=== PATIENT | female | born 1990 | race Caucasian/White ===

== ENCOUNTER 2016-08-09 11:39 | Emergency (ER) | payer SELFPAY ==
[~2016-08-09] VITALS: Ht 177.8 cm; Wt 52.2 kg
[~2016-08-09 11:39] MED LIST: PREN1TAB54 PO
[2016-08-09 12:15] LABS: BILIRUBIN,URINE NEGATIVE (NEG); GLUCOSE,URINE NEGATIVE (NEG); NITRITE,URINE NEGATIVE (NEG); PH,URINE 5.5; PROTEIN,URINE NEGATIVE (NEG-TRACE); UROBILINOGEN,URINE 0.2 mg/dL (0.2 mg/dL)
[2016-08-09] MEDS ORDERED: ONDANSETRON PF 4 MG/2 ML VIAL. IV ONE (12:15)
[2016-08-09] MEDS ORDERED: ONDANSETRON ODT 4 MG TAB.RAPDIS. PO ONE (12:15)
[2016-08-09] MEDS ORDERED: IV NORMAL SALINE 1000ML BAG 1,000 ML IV ONE (12:15)
[2016-08-09] MEDS ORDERED: DICY10CA53 PO (12:19)
[2016-08-09] MEDS ORDERED: ONDA4TAB10 SL (12:19)
--- NOTE | 2016-08-09 12:19 | PHYS DOC ---
Past Medical History Past Medical History: No Pertinent History Past Surgical History: No Surgical History Additional Information: 7 cigarettes per day. Alcohol Use: Occasionally Additional Information: once per week. Drug Use: None Adult General Chief Complaint Chief Complaint: NAUSEA/VOMITING/DIARRHA HPI HPI 25-year-old female presenting to the emergency department with nausea vomiting and watery diarrhea for the past 2 days after eating suspicious food. She has a cramping abdominal pain that is worse when she is bending over however currently she has no abdominal pain. When she does have the pain she states it' s on the superficial part of her musculature of the abdomen. She denies fevers chills or bloody stools. She denies being . Review of systems was negative for chest pain shortness of breath fevers chills. All other review of systems is negative unless otherwise noted in history of present illness. Review of Systems Review of Systems SEE ABOVE Current Medications Current Medications Current Medications Medications (Trade) Dose Ordered Sig/Kali Start Time Stop Time Status Last Admin Dose Admin Dicyclomine HCl (Bentyl) 10 mg 1X ONCE 08/09/16 12:30 08/09/16 12:31 DC 08/09/16 12:20 10 MG Ondansetron HCl (Zofran Odt) 4 mg 1X ONCE 08/09/16 12:15 08/09/16 12:16 DC Ondansetron HCl 4 mg 4 mg 1X ONCE 08/09/16 12:15 08/09/16 12:16 DC 08/09/16 12:15 4 MG Sodium Chloride (Iv Sodium Chloride 0.9% 1000ml Bag) 1,000 ml @ 1,000 mls/hr 1X ONCE 08/09/16 12:15 08/09/16 13:11 DC 08/09/16 12:14 1,000 MLS/HR Allergies Allergies Allergies Coded Allergies Type Severity Reaction Last Updated Verified Penicillins Allergy Intermediate vaginal swelling 12/10/13 Yes amoxicillin Allergy Intermediate vaginal swelling 12/10/13 Yes Physical Exam Physical Exam Constitutional: Well developed, well nourished, no acute distress, non-toxic appearance. HENT: Normocephalic, atraumatic, bilateral external ears normal, oropharynx moist, no oral exudates, nose normal. [] Eyes: PERRLA, EOMI, conjunctiva normal, no discharge. Neck: Normal range of motion, no tenderness, supple, no stridor. Cardiovascular:Heart rate regular rhythm, no murmur Lungs & Thorax: Bilateral breath sounds clear to auscultation [] Abdomen: Soft and nontender to palpation. Negative McBurney's point. Negative Pineda sign. No rebound tenderness or guarding present. Nondistended. Skin: Warm, dry, no erythema, no rash. Back: No tenderness, no CVA tenderness. [] Extremities: No tenderness, no cyanosis, no clubbing, ROM intact, no edema. Neurologic: Alert and oriented X 3, normal motor function, normal sensory function, no focal deficits noted. [] Psychologic: Affect normal, judgement normal, mood normal. [] Current Patient Data Vital Signs Vital Signs Date Time Temp Pulse Resp B/P Pulse Ox O2 Delivery O2 Flow Rate FiO2 08/09/16 13:07 74 16 102/69 100 Room Air 08/09/16 11:41 98.8 98.8 Lab Values Laboratory Tests Test 08/09/16 11:03 08/09/16 11:55 08/09/16 12:15 POC Urine HCG, Qualitative Hcg negative (Negative) Urine Collection Type Unknown Urine Color Yellow Urine Clarity Clear Urine pH 5.5 Urine Specific [place] >=1.030 Urine Protein Negativemg/dL (NEG-TRACE) Urine Glucose (UA) Negativemg/dL (NEG) Urine Ketones (Stick) Negativemg/dL (NEG) Urine Blood Negative (NEG) Urine Nitrite Negative (NEG) Urine Bilirubin Negative (NEG) Urine Urobilinogen Dipstick 0.2mg/dL (0.2 mg/dL) Urine Leukocyte Esterase Trace (NEG) Urine RBC 0/HPF (0-2) Urine WBC 1-4/HPF (0-4) Urine Squamous Epithelial Cells Many/LPF Urine Bacteria Many/HPF (0-FEW) White Blood Count 7.8x10^3/uL (4.0-11.0) Red Blood Count 4.59x10^6/uL (3.50-5.40) Hemoglobin 13.7g/dL (12.0-15.5) Hematocrit 41.8% (36.0-47.0) Mean Corpuscular Volume 91fL (79-100) Mean Corpuscular Hemoglobin 30pg (25-35) Mean Corpuscular Hemoglobin Concent 33g/dL (31-37) Red Cell Distribution Width 13.9% (11.5-14.5) Platelet Count 178x10^3/uL (140-400) Neutrophils (%) (Auto) 69% (31-73) Lymphocytes (%) (Auto) 25% (24-48) Monocytes (%) (Auto) 6% (0-9) Eosinophils (%) (Auto) 0% (0-3) Basophils (%) (Auto) 0% (0-3) Neutrophils # (Auto) 5.4x10^3uL (1.8-7.7) Lymphocytes # (Auto) 1.9x10^3/uL (1.0-4.8) Monocytes # (Auto) 0.5x10^3/uL (0.0-1.1) Eosinophils # (Auto) 0.0x10^3/uL (0.0-0.7) Basophils # (Auto) 0.0x10^3/uL (0.0-0.2) Sodium Level 142mmol/L (136-145) Potassium Level 3.8mmol/L (3.5-5.1) Chloride Level 105mmol/L (98-107) Carbon Dioxide Level 29mmol/L (21-32) Anion Gap 8 (6-14) Blood Urea Nitrogen 13mg/dL (7-20) Creatinine 0.8mg/dL (0.6-1.0) Estimated GFR (Cockcroft-Gault) 87.4 BUN/Creatinine Ratio 16 (6-20) Glucose Level 70mg/dL (70-99) Calcium Level 9.4mg/dL (8.5-10.1) Total Bilirubin 0.5mg/dL (0.2-1.0) Aspartate Amino Transferase (AST) 17U/L (15-37) Alanine Aminotransferase (ALT) 19U/L (14-59) Alkaline Phosphatase 82U/L (46-116) Total Protein 8.0g/dL (6.4-8.2) Albumin 4.2g/dL (3.4-5.0) Albumin/Globulin Ratio 1.1 (1.0-1.7) Lipase 101U/L (73-393) Laboratory Tests 08/09/16 12:15 Laboratory Tests 08/09/16 12:15 EKG EKG [] Radiology/Procedures Radiology/Procedures [] Course & Med Decision Making Course & Med Decision Making Pertinent Labs and Imaging studies reviewed. (See chart for details) [] 25-year-old female presenting to the emergency department today with nausea vomiting and diarrhea. Vital signs. Pertinent physical exam showed a nontender abdomen. The patient was given IV fluids, Bentyl, and ondansetron which improved her symptoms. On reevaluation she was feeling much better. Blood work was obtained. Urine test negative. Patient was up slightly discharged home to follow-up with her primary care physician if her symptoms did not improve in the next 2-3 days. Virw-gn-[id number] discharge instructions were given. Patient comfortable with plan. Dragon Disclaimer Dragon Disclaimer This electronic medical record was generated, in whole or in part, using a voice recognition dictation system. Departure Departure Impression: Primary Impression: Nausea vomiting and diarrhea Disposition: HOME, SELF-CARE Condition: STABLE Referrals: NO PCP (PCP) MICHAEL SLAUGHTER MD Patient Instructions: Nausea and Vomiting Additional Instructions: Thank you for allowing us to participate in your care today. Followup with your primary care physician in 3 days if your symptoms do not improve. Return to the emergency department you have any new or concerning findings. This should be evaluated by the primary care physician and any necessary consulting services for continued management within a few days after discharge. Return to emergency room if you have any new or concerning symptoms including but not limited to fever, chills, nausea, vomiting, intractable pain, any new rashes, chest pain, shortness of air, uncontrolled bleeding, difficulty breathing, and/or vision loss. Be careful as some of the medications that are prescribed in the emergency department can cause drowsiness and fatigue. Do not drive on medications that can cause drowsiness. Some of these medications include Benadryl or hydrocodone. Be sure to check with her pharmacist about any medications you were prescribed today regarding this. Scripts Dicyclomine Hcl (Bentyl)10 Mg Capsule1 Cap PO PRN TID PRN SEE COMMENTS #6 CAP Prov:BERTRAM CUELLAR MD 08/09/16 Ondansetron (Zofran Odt)4 Mg Tab.rapdis1 Tab SL PRN Q8HRS PRN NAUSEA #6 TAB Prov:BERTRAM CUELLAR MD 08/09/16 BERTRAM CUELLAR MD Aug 09, 2016 12:19
[2016-08-09 12:25] LABS: BASO % 0 % (0-3); EOS % 0 % (0-3); HEMATOCRIT 41.8 % (36.0-47.0); HEMOGLOBIN 13.7 g/dL (12.0-15.5); LYMPH # 1.9 x10^3/uL (1.0-4.8); LYMPH % 25 % (24-48); MEAN CORPUSCULAR HEMOGLOBIN 30 pg (25-35); MEAN CORPUSCULAR HGB CONC 33 g/dL (31-37); MEAN CORPUSCULAR VOLUME 91 fL (79-100); MONO % 6 % (0-9); NEUT % 69 % (31-73); PLATELET COUNT 178 x10^3/uL (140-400); RED BLOOD COUNT 4.59 x10^6/uL (3.50-5.40); RED CELL DISTRIBUTION WIDTH 13.9 % (11.5-14.5); WHITE BLOOD COUNT 7.8 x10^3/uL (4.0-11.0)
[2016-08-09 12:26] LABS: BACTERIA,URINE MANY /HPF (0-FEW); RBC,URINE 0 /HPF (0-2)
[2016-08-09 12:27] LABS: SQUAMOUS EPITHELIAL CELL,UR MANY /LPF
[2016-08-09] MEDS ORDERED: DICYCLOMINE HCL 10 MG CAPSULE PO ONE (12:30)
[2016-08-09 12:38] LABS: CALCIUM 9.4 mg/dL (8.5-10.1); CREATININE 0.8 mg/dL (0.6-1.0); GFR 87.4; POTASSIUM 3.8 mmol/L (3.5-5.1)
[2016-08-09 12:44] LABS: ALBUMIN 4.2 g/dL (3.4-5.0); ALBUMIN/GLOBULIN RATIO 1.1 (1.0-1.7); TOTAL BILIRUBIN 0.5 mg/dL (0.2-1.0)
[2016-08-09 13:07] VITALS: BP 102/69
== END 2016-08-09 13:11 | disposition home or self-care (01) ==
LOC: ER 11:39
DX: R11.2 Nausea with vomiting, unspecified (principal); R19.7 Diarrhea, unspecified; R10.9 Unspecified abdominal pain; F17.210 Nicotine dependence, cigarettes, uncomplicated; Z88.0 Allergy status to penicillin; Z88.1 Allergy status to other antibiotic agents
CPT/HCPCS: 36415; 80053; 81001; 81025; 83690; 85027; 87086; 96361; 96374; 99284; J2405; J7030

== ENCOUNTER 2016-12-30 18:16 | Emergency (ER) | payer BC ==
[~2016-12-30 18:16] MED LIST changes: +DICY10CA53 PO; +ONDA4TAB10 SL
[2016-12-30 18:26] VITALS: BP 110/65
--- NOTE | 2016-12-30 18:28 | PHYS DOC ---
Past Medical History Past Medical History: No Pertinent History Past Surgical History: No Surgical History Alcohol Use: Occasionally Drug Use: None Adult General Chief Complaint Chief Complaint: NAUSEA/VOMITING/DIARRHA HPI HPI Patient is a 26 year old female who presents with nausea vomiting and diarrhea. She states she didn't recur porkchops all the way and she has food poisoning again. She denies any blood in her vomit or stools that she's had 3 loose stools today and vomited several times. She denies any fevers chills , she denies any recent travel. She states that same thing happen about 6 months ago. She denies any vaginal bleeding or discharge. Review of Systems Review of Systems Constitutional: Denies fever or chills [] Eyes: Denies change in visual acuity, redness, or eye pain [] HENT: Denies nasal congestion or sore throat [] Respiratory: Denies cough or shortness of breath [] Cardiovascular: No additional information not addressed in HPI [] GI: Denies abdominal pain, nausea, vomiting, bloody stools or diarrhea [] : Denies dysuria or hematuria [] Musculoskeletal: Denies back pain or joint pain [] Integument: Denies rash or skin lesions [] Neurologic: Denies headache, focal weakness or sensory changes [] Endocrine: Denies polyuria or polydipsia [] Current Medications Current Medications Current Medications Medications (Trade) Dose Ordered Sig/Kali Start Time Stop Time Status Last Admin Dose Admin Morphine Sulfate 2 mg PRN Q15MIN PRN 12/30/16 18:45 12/31/16 18:29 Ondansetron HCl (Zofran) 4 mg 1X ONCE 12/30/16 18:30 12/30/16 18:32 DC 12/30/16 18:51 4 MG Sodium Chloride 1,000 ml @ 1,000 mls/hr Q1H 12/30/16 18:30 12/30/16 19:29 12/30/16 18:51 1,000 MLS/HR Allergies Allergies Allergies Coded Allergies Type Severity Reaction Last Updated Verified Penicillins Allergy Intermediate vaginal swelling 12/10/13 Yes amoxicillin Allergy Intermediate vaginal swelling 12/10/13 Yes Physical Exam Physical Exam Constitutional: Well developed, well nourished, no acute distress, non-toxic appearance. [] HENT: Normocephalic, atraumatic, bilateral external ears normal, oropharynx moist, no oral exudates, nose normal. [] Eyes: PERRLA, EOMI, conjunctiva normal, no discharge. [] Neck: Normal range of motion, no tenderness, supple, no stridor. [] Cardiovascular:Heart rate regular rhythm, no murmur [] Lungs & Thorax: Bilateral breath sounds clear to auscultation [] Abdomen: Bowel sounds normal, soft, no tenderness, no masses, no pulsatile masses. [] Skin: Warm, dry, no erythema, no rash. [] Back: No tenderness, no CVA tenderness. [] Extremities: No tenderness, no cyanosis, no clubbing, ROM intact, no edema. [] Neurologic: Alert and oriented X 3, normal motor function, normal sensory function, no focal deficits noted. [] Psychologic: Affect normal, judgement normal, mood normal. [] Current Patient Data Vital Signs Vital Signs Date Time Temp Pulse Resp B/P (MAP) Pulse Ox O2 Delivery O2 Flow Rate FiO2 12/30/16 18:26 98.8 90 16 110/65 (80) 98 Room Air 98.8 Lab Values Laboratory Tests Test 12/30/16 17:31 12/30/16 18:20 12/30/16 18:50 POC Urine HCG, Qualitative Hcg negative (Negative) Urine Collection Type Unknown Urine Color Yellow Urine Clarity Clear Urine pH 6.0 Urine Specific [place] 1.015 Urine Protein Negative mg/dL (NEG-TRACE) Urine Glucose (UA) Negative mg/dL (NEG) Urine Ketones (Stick) Negative mg/dL (NEG) Urine Blood Negative (NEG) Urine Nitrite Negative (NEG) Urine Bilirubin Negative (NEG) Urine Urobilinogen Dipstick 0.2 mg/dL (0.2 mg/dL) Urine Leukocyte Esterase Negative (NEG) Urine RBC 0 /HPF (0-2) Urine WBC 0 /HPF (0-4) Urine Squamous Epithelial Cells Few /LPF Urine Bacteria Few /HPF (0-FEW) Urine Opiates Screen Neg (NEG) Urine Methadone Screen Neg (NEG) Urine Barbiturates Neg (NEG) Urine Phencyclidine Screen Neg (NEG) Urine Amphetamine/Methamphetamine Neg (NEG) Urine Benzodiazepines Screen Neg (NEG) Urine Cocaine Screen Neg (NEG) Urine Cannabinoids Screen Pos (NEG) Urine Ethyl Alcohol Neg (NEG) White Blood Count 10.8 x10^3/uL (4.0-11.0) Red Blood Count 4.01 x10^6/uL (3.50-5.40) Hemoglobin 12.3 g/dL (12.0-15.5) Hematocrit 36.9 % (36.0-47.0) Mean Corpuscular Volume 92 fL (79-100) Mean Corpuscular Hemoglobin 31 pg (25-35) Mean Corpuscular Hemoglobin Concent 33 g/dL (31-37) Red Cell Distribution Width 13.3 % (11.5-14.5) Platelet Count 160 x10^3/uL (140-400) Neutrophils (%) (Auto) 69 % (31-73) Lymphocytes (%) (Auto) 24 % (24-48) Monocytes (%) (Auto) 6 % (0-9) Eosinophils (%) (Auto) 1 % (0-3) Basophils (%) (Auto) 0 % (0-3) Neutrophils # (Auto) 7.4 x10^3uL (1.8-7.7) Lymphocytes # (Auto) 2.6 x10^3/uL (1.0-4.8) Monocytes # (Auto) 0.6 x10^3/uL (0.0-1.1) Eosinophils # (Auto) 0.1 x10^3/uL (0.0-0.7) Basophils # (Auto) 0.0 x10^3/uL (0.0-0.2) Sodium Level 140 mmol/L (136-145) Potassium Level 4.0 mmol/L (3.5-5.1) Chloride Level 103 mmol/L (98-107) Carbon Dioxide Level 29 mmol/L (21-32) Anion Gap 8 (6-14) Blood Urea Nitrogen 20 mg/dL (7-20) Creatinine 0.7 mg/dL (0.6-1.0) Estimated GFR (Cockcroft-Gault) 101.1 Glucose Level 99 mg/dL (70-99) Calcium Level 8.5 mg/dL (8.5-10.1) Total Bilirubin 0.2 mg/dL (0.2-1.0) Direct Bilirubin < 0.1 mg/dL (0.0-0.2) Aspartate Amino Transferase (AST) 16 U/L (15-37) Alanine Aminotransferase (ALT) 20 U/L (14-59) Alkaline Phosphatase 61 U/L (46-116) Creatine Kinase 68 U/L (26-192) Total Protein 6.7 g/dL (6.4-8.2) Albumin 3.7 g/dL (3.4-5.0) Lipase 122 U/L (73-393) Serum Test, Qualitative Negative (NEG) Laboratory Tests 12/30/16 18:50 Laboratory Tests 12/30/16 18:50 EKG EKG [] Radiology/Procedures Radiology/Procedures [] Course & Med Decision Making Course & Med Decision Making Pertinent Labs and Imaging studies reviewed. (See chart for details) [] Dragon Disclaimer Dragon Disclaimer This electronic medical record was generated, in whole or in part, using a voice recognition dictation system. Departure Departure Impression: Primary Impression: Nausea vomiting and diarrhea Disposition: HOME, SELF-CARE Condition: STABLE Referrals: NO PCP (PCP) Patient Instructions: Nausea and Vomiting, [id number] Additional Instructions: You were seen today for nausea vomiting diarrhea. Your labs did not show any acute abnormalities. He received IV fluids and some pain meds. Your being discharged home with meds for anti-nausea. You should feel better within the next 24 hours. Try to push fluids specifically Gatorade if you have an avid. He developed severe abdominal pain, uncontrolled nausea vomiting or other concerns please return back to the ER or follow-up with a primary care physician. Scripts Ondansetron (ZOFRAN ODT) 4 Mg Tab.rapdis 1 TAB SL Q8HRS Y for VOMITING, #5 TAB Prov: DINESH GUTIERREZ MD 12/30/16 DINESH GUTIERREZ MD Dec 30, 2016 18:28
[2016-12-30] MEDS ORDERED: MORPHINE SULFATE 2 MG/ML DISP.SYRIN. IV/SQ PRN (18:30)
[2016-12-30] MEDS ORDERED: ONDANSETRON PF 4 MG/2 ML VIAL. IV ONE (18:30)
[2016-12-30] MEDS ORDERED: IV NORMAL SALINE 1000ML BAG 1,000 ML IV SCH (18:30)
[2016-12-30 18:37] LABS: BILIRUBIN,URINE NEGATIVE (NEG); GLUCOSE,URINE NEGATIVE (NEG); NITRITE,URINE NEGATIVE (NEG); PROTEIN,URINE NEGATIVE (NEG-TRACE); UROBILINOGEN,URINE 0.2 mg/dL (0.2 mg/dL)
[2016-12-30 18:42] LABS: BACTERIA,URINE FEW /HPF (0-FEW); RBC,URINE 0 /HPF (0-2); SQUAMOUS EPITHELIAL CELL,UR FEW /LPF; WBC,URINE 0 /HPF (0-4)
[2016-12-30] MEDS ORDERED: MORPHINE SULFATE 4 MG/ML DISP.SYRIN. IV/SQ PRN (18:45)
[2016-12-30 18:46] LABS: BARBITURATES NEG (NEG); BENZODIAZEPINES NEG (NEG); CANNABINOIDS POS (NEG); COCAINE NEG (NEG); METHADONE NEG (NEG); OPIATES NEG (NEG); PHENCYCLIDINE NEG (NEG)
[2016-12-30 18:58] LABS: BASO % 0 % (0-3); EOS % 1 % (0-3); HEMATOCRIT 36.9 % (36.0-47.0); HEMOGLOBIN 12.3 g/dL (12.0-15.5); LYMPH # 2.6 x10^3/uL (1.0-4.8); LYMPH % 24 % (24-48); MEAN CORPUSCULAR HEMOGLOBIN 31 pg (25-35); MEAN CORPUSCULAR HGB CONC 33 g/dL (31-37); MEAN CORPUSCULAR VOLUME 92 fL (79-100); MONO % 6 % (0-9); NEUT % 69 % (31-73); PLATELET COUNT 160 x10^3/uL (140-400); RED BLOOD COUNT 4.01 x10^6/uL (3.50-5.40); RED CELL DISTRIBUTION WIDTH 13.3 % (11.5-14.5); WHITE BLOOD COUNT 10.8 x10^3/uL (4.0-11.0)
[2016-12-30 19:11] LABS: NEG OBC SER NEG; POS OBC SER POS
[2016-12-30 19:12] LABS: ANION GAP 8 (6-14); BLOOD UREA NITROGEN 20 mg/dL (7-20); CALCIUM 8.5 mg/dL (8.5-10.1); CARBON DIOXIDE 29 mmol/L (21-32); CHLORIDE 103 mmol/L (98-107); CREATININE 0.7 mg/dL (0.6-1.0); GFR 101.1; GLUCOSE 99 mg/dL (70-99); SODIUM 140 mmol/L (136-145)
[2016-12-30 19:18] LABS: ALBUMIN 3.7 g/dL (3.4-5.0); ALK PHOS 61 U/L (46-116); ALT (SGPT) 20 U/L (14-59); AST (SGOT) 16 U/L (15-37); CREATINE KINASE 68 U/L (26-192); DIRECT BILIRUBIN < 0.1 mg/dL (0.0-0.2); TOTAL BILIRUBIN 0.2 mg/dL (0.2-1.0); TOTAL PROTEIN 6.7 g/dL (6.4-8.2)
[2016-12-30] MEDS ORDERED: ONDA4TAB10 SL (19:30)
== END 2016-12-30 19:46 | disposition home or self-care (01) ==
LOC: ER 18:16
DX: R11.2 Nausea with vomiting, unspecified (principal); R19.7 Diarrhea, unspecified; Z88.0 Allergy status to penicillin; Z88.1 Allergy status to other antibiotic agents
CPT/HCPCS: 36415; 80048; 80076; 80307; 81001; 81025; 82550; 83690; 84703; 85025; 96361; 96374; 99284; J2405; J7030; G0479

== ENCOUNTER 2017-12-21 22:21 | Emergency (ER) | payer SELFPAY ==
[~2017-12-21] VITALS: Ht 157.5 cm; Wt 45.4 kg
[2017-12-21 22:27] VITALS: BP 120/75
[2017-12-21] MEDS ORDERED: NAPROXEN 500 MG TABLET PO ONE (23:30)
[2017-12-21] MEDS ORDERED: HYDROcodone/APAP 5/325MG 1 TAB TABLET PO ONE (23:45)
--- NOTE | 2017-12-21 23:45 | PHYS DOC ---
Past Medical History Past Medical History: No Pertinent History Past Surgical History: No Surgical History Alcohol Use: Occasionally Drug Use: Marijuana Adult General Chief Complaint Chief Complaint: FOOT INJURY PAIN HPI HPI Patient is a 27 year old male who presents to the emergency Department today with complaints of right foot pain at the base of her second, third, and fourth toes after she reportedly dropped a couch on top of her foot this morning. Patient states she has been able to limp on her right foot. Currently she rates her pain as a 6 out of 10 on pain scale. She states that the injury happened at 11:30 this morning and she has not taken any medications the event. Patient states that her little tingly. Her sister dropped her off at the ER. Review of Systems Review of Systems Constitutional: Denies fever or chills [] Eyes: Denies change in visual acuity, redness, or eye pain [] HENT: Denies nasal congestion or sore throat [] Respiratory: Denies cough or shortness of breath [] Cardiovascular: No additional information not addressed in HPI [] GI: Denies abdominal pain, nausea, vomiting, bloody stools or diarrhea [] : Denies dysuria or hematuria [] Musculoskeletal: Denies back pain or joint pain [] Integument: Denies rash or skin lesions [] Neurologic: Denies headache, focal weakness or sensory changes [] Endocrine: Denies polyuria or polydipsia [] All other systems were reviewed and found to be within normal limits, except as documented in this note. Current Medications Current Medications Current Medications Medications (Trade) Dose Ordered Sig/Kali Start Time Stop Time Status Last Admin Dose Admin Acetaminophen/ Hydrocodone Bitart (Lortab 5/325) 1 tab 1X ONCE 12/21/17 23:45 12/21/17 23:46 Naproxen (Naprosyn) 500 mg 1X ONCE 12/21/17 23:30 12/21/17 23:31 DC Allergies Allergies Allergies Coded Allergies Type Severity Reaction Last Updated Verified Penicillins Allergy Intermediate vaginal swelling 12/10/13 Yes amoxicillin Allergy Intermediate vaginal swelling 12/10/13 Yes Physical Exam Physical Exam Constitutional: Well developed, well nourished, mild distress, tearful,non- toxic appearance. [] HENT: Normocephalic, atraumatic, bilateral external ears normal, nose normal. [] Eyes: PERRLA, conjunctiva normal, no discharge. [] Skin: Warm, dry, no erythema, no rash, several small abrasions to top of left foot, no bleeding. [] Extremities: No cyanosis, ROM intact, 1+ edema to top of left foot with mild bruising. [] Neurologic: Alert and oriented X 3, normal motor function, normal sensory function, no focal deficits noted. [] Psychologic: Affect normal, judgement normal, mood normal. [] Current Patient Data Vital Signs Vital Signs Date Time Temp Pulse Resp B/P (MAP) Pulse Ox O2 Delivery O2 Flow Rate FiO2 12/21/17 22:27 98.5 73 20 120/75 (90) 99 Room Air 98.5 EKG EKG [] Radiology/Procedures Radiology/Procedures X-ray of left foot negative for any acute findings, read by Dr. Hudson[] Course & Med Decision Making Course & Med Decision Making Pertinent Labs and Imaging studies reviewed. (See chart for details) Patient is a 27-year-old female who presented to the emergency room with complaints of left foot pain after dropping a couch on top of her foot this morning at approximately 11:30. VSS, x-ray left foot is negative for any acute dislocation or fracture, clinically patient presents as left foot pain with contusion, treated as such. Patient was given an naproxen and a hydrocodone in the emergency department she denied any visible , her last menstrual period was on December 07, 2017. An Shantanu wrap was applied to the left foot and her foot was also placed in a postop shoe. Patient verbalized understanding of test results, home care, follow -up, medications, and return to ED instructions without any further questions or concerns. [] Dragon Disclaimer Dragon Disclaimer This electronic medical record was generated, in whole or in part, using a voice recognition dictation system. Departure Departure Impression: Primary Impression: Contusion of left foot, initial encounter Disposition: HOME, SELF-CARE Condition: STABLE Referrals: NO PCP (PCP) Patient Instructions: Foot Contusion, [id number] Additional Instructions: Recommend application of ice to the area and elevation, wear the shantanu wrap and postoperative shoe that was provided. May take Tylenol in addition to the pain medication that has been prescribed. Follow-up with your primary care doctor in the next 1-2 days. Activity as tolerated. Return to the emergency room if her symptoms worsen. Scripts Naproxen (NAPROXEN) 500 Mg Tablet 1 TAB PO BID PRN for PAIN for 10 Days, #20 TAB 0 Refills Prov: LYNN PAIZ APRN 12/21/17 LYNN PAIZ APRN Dec 21, 2017 23:45
[2017-12-21] MEDS ORDERED: NAPR-514 PO (23:55)
--- NOTE | 2017-12-22 08:47 | RAD ---
EXAM: 3 views right foot. DATE: 12/21/2017 10:39 PM INDICATION: RT FOOT PAIN DUE TO FALL COMPARISON: No Prior FINDINGS/ IMPRESSION: No evidence of acute fracture or dislocation. Joint spaces are preserved without significant degenerative/proliferative change. Minimal soft tissue swelling overlying the fifth MCP joint. A 4 mm radiopaque density is seen at the plantar aspect of the calcaneus likely retained foreign body. Electronically signed by: Eros Palafox MD (12/22/2017 8:44 AM) [facility]
== END 2017-12-22 00:21 | disposition home or self-care (01) ==
LOC: ER 22:21
DX: S90.31XA Contusion of right foot, initial encounter (principal); Z88.0 Allergy status to penicillin; Z88.1 Allergy status to other antibiotic agents; W20.8XXA Other cause of strike by thrown, projected or falling object, initial encounter; Y93.89 Activity, other specified; Y92.89 Other specified places as the place of occurrence of the external cause; Y99.8 Other external cause status
CPT/HCPCS: 73630; 99284

== ENCOUNTER 2018-09-20 17:37 | Emergency (ER) | payer SELFPAY ==
[~2018-09-20] VITALS: Ht 157.5 cm; Wt 48.1 kg
[~2018-09-20 17:37] MED LIST changes: +NAPR-514 PO
[2018-09-20 18:42] VITALS: BP 120/82
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
[2018-09-20 18:58] LABS: BILIRUBIN,URINE NEGATIVE (NEG); CLARITY,URINE CLEAR; COLOR,URINE YELLOW; NITRITE,URINE NEGATIVE (NEG); PH,URINE 7.5; PROTEIN,URINE NEGATIVE (NEG-TRACE); UROBILINOGEN,URINE 0.2 mg/dL (0.2 mg/dL)
[2018-09-20] MEDS ORDERED: IBUPROFEN 400 MG TABLET. PO ONE (19:00)
[2018-09-20 19:04] LABS: BACTERIA,URINE MANY /HPF (0-FEW); RBC,URINE RARE /HPF (0-2); SQUAMOUS EPITHELIAL CELL,UR MANY /LPF; WBC,URINE OCC /HPF (0-4)
== END 2018-09-20 19:20 | disposition home or self-care (01) ==
LOC: ER 17:37
DX: R11.2 Nausea with vomiting, unspecified (principal); R10.30 Lower abdominal pain, unspecified; F17.210 Nicotine dependence, cigarettes, uncomplicated; Z88.0 Allergy status to penicillin; Z88.1 Allergy status to other antibiotic agents
CPT/HCPCS: 81001; 81025; 87086; 99284

== ENCOUNTER 2018-10-03 16:43 | Emergency (ER) | payer SELFPAY ==
[~2018-10-03] VITALS: Ht 157.5 cm; Wt 48.1 kg
[2018-10-03] MEDS ORDERED: IV NORMAL SALINE 1000ML BAG 1,000 ML IV ONE (18:30)
[2018-10-03] MEDS ORDERED: ONDANSETRON PF 4 MG/2 ML VIAL. IV ONE (18:30)
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
[2018-10-03 19:50] VITALS: BP 130/60
[2018-10-03 20:02] LABS: BASO % 1 % (0-3); EOS % 0 % (0-3); HEMATOCRIT 38.2 % (36.0-47.0); HEMOGLOBIN 12.9 g/dL (12.0-15.5); LYMPH % 27 % (24-48); MEAN CORPUSCULAR HEMOGLOBIN 31 pg (25-35); MEAN CORPUSCULAR HGB CONC 34 g/dL (31-37); MEAN CORPUSCULAR VOLUME 91 fL (79-100); MONO # 0.5 x10^3/uL (0.0-1.1); MONO % 7 % (0-9); NEUT % 66 % (31-73); PLATELET COUNT 222 x10^3/uL (140-400); RED BLOOD COUNT 4.19 x10^6/uL (3.50-5.40); RED CELL DISTRIBUTION WIDTH 13.2 % (11.5-14.5); WHITE BLOOD COUNT 7.6 x10^3/uL (4.0-11.0)
[2018-10-03 20:12] LABS: CALCIUM 9.4 mg/dL (8.5-10.1); CREATININE 0.7 mg/dL (0.6-1.0); GFR 100.4; POTASSIUM 3.6 mmol/L (3.5-5.1)
[2018-10-03 20:24] LABS: BILIRUBIN,URINE NEGATIVE (NEG); CLARITY,URINE CLEAR; COLOR,URINE YELLOW; NITRITE,URINE NEGATIVE (NEG); PH,URINE 6.5; PROTEIN,URINE NEGATIVE (NEG-TRACE); UROBILINOGEN,URINE 0.2 mg/dL (0.2 mg/dL)
[2018-10-03 20:46] LABS: BACTERIA,URINE MODERATE /HPF (0-FEW); RBC,URINE RARE /HPF (0-2); SQUAMOUS EPITHELIAL CELL,UR MOD /LPF; WBC,URINE 0 /HPF (0-4)
--- NOTE | 2018-10-03 20:57 | RAD ---
Obstetric ultrasound less than 14 weeks with transvaginal: Reason for examination: Spotting. Transvaginal ultrasound examination was performed. Uterus measures 8.3 x 5.4 x 4.2 cm in greatest dimension and shows no focal masses. There does appear to be a small gestational sac within the endometrial cavity. This measures 4.4 mm in greatest dimension corresponding with a gestational age of 5 weeks 1 day and an estimated date of confinement of 06/04/2019. No yolk sac or pole is identified. The right ovary measures 3.4 x 2.4 x 2.0 cm in greatest dimension and appears to show normal vascular flow and contains a corpus luteum measuring approximately 1.8 cm in size. The left ovary measures 2.0 x 1.3 x 1.2 cm in greatest dimension with normal vascular flow but appears to contain a small 3.6 mm follicle. No free fluid is seen. IMPRESSION: Small gestational sac within the endometrial cavity measuring 4.4 mm in size which correspond with a gestational age of approximately 5 weeks 1 day. No pole or yolk sac identified at this time. Estimated date of confinement is estimated at 06/04/2019. 1.8 cm corpus luteum at the right ovary. Small follicle in the left ovary measuring 3.6 mm in size. Electronically signed by: Madiha Baker MD (10/03/2018 8:54 PM) [facility]
[2018-10-03] MEDS ORDERED: ACETAMINOPHEN 500 MG TABLET PO ONE (21:00)
== END 2018-10-03 21:30 | disposition home or self-care (01) ==
LOC: ER 16:43
DX: O20.0 Threatened abortion (principal); O21.8 Other vomiting complicating pregnancy; Z88.0 Allergy status to penicillin; Z88.1 Allergy status to other antibiotic agents; Z3A.01 Less than 8 weeks gestation of pregnancy
CPT/HCPCS: 36415; 76801; 76817; 80048; 81001; 84702; 85025; 86900; 86901; 87086; 96361; 96374; 99285; J2405; J7030

== ENCOUNTER 2018-11-10 16:02 | Emergency (ER) | payer OTHER ==
[~2018-11-10] VITALS: Ht 157.5 cm; Wt 49.0 kg
[2018-11-10 17:01] VITALS: BP 121/78
--- NOTE | 2018-11-10 17:12 | PHYS DOC ---
Past Medical History Past Medical History: No Pertinent History Past Surgical History: No Surgical History Smoking: Cigarettes, Less than 1pk/day Alcohol Use: Sober Drug Use: Marijuana Adult General Chief Complaint Chief Complaint: SORE THROAT HPI HPI Patient is a 27 year old male who presents with the chief complaint is sore throat. The patient states that this pain started this morning. Associated symptoms include 101.8� fever at home. She also states that she's been having abdominal cramping, and is 11 weeks . Her last menstrual period was August 25. Plan on seeing Dr. Wilkins but does not have an appointment yet. Denies any vaginal bleeding. Rates her pain as 7 out of 10 in severity and has taken 650 mg of Tylenol today. [id number]. Review of Systems Review of Systems Constitutional: Reports fever or chills [] Eyes: Denies change in visual acuity, redness, or eye pain [] HENT: Denies nasal congestion but reports sore throat [] Respiratory: Denies cough or shortness of breath [] Cardiovascular: No additional information not addressed in HPI [] GI: Reports abdominal cramping, nausea, States has been having nausea the entire . Denies vomiting, bloody stools or diarrhea [] : Denies dysuria or hematuria [] Musculoskeletal: Reports back pain but denies joint pain [] Integument: Denies rash or skin lesions [] Neurologic: Denies headache, focal weakness or sensory changes [] Endocrine: Denies polyuria or polydipsia [] Complete systems were reviewed and found to be within normal limits, except as documented in this note. Current Medications Current Medications Current Medications Medications (Trade) Dose Ordered Sig/Kali Start Time Stop Time Status Last Admin Dose Admin Ondansetron HCl (Zofran Odt) 4 mg 1X ONCE 11/10/18 17:15 11/10/18 17:16 DC 11/10/18 17:32 4 MG Allergies Allergies Allergies Coded Allergies Type Severity Reaction Last Updated Verified Penicillins Allergy Intermediate vaginal swelling 12/10/13 Yes amoxicillin Allergy Intermediate vaginal swelling 12/10/13 Yes Physical Exam Physical Exam Constitutional: Well developed, well nourished, no acute distress, non-toxic appearance. [] HENT: Normocephalic, atraumatic, bilateral external ears normal, oropharynx m oist, tonsils are 2+/4 with no oral exudates, nose normal. [] Eyes: PERRLA, EOMI, conjunctiva normal, no discharge. [] Neck: Normal range of motion, no tenderness, supple, no stridor. [] Cardiovascular:Heart rate regular rhythm, no murmur [] Lungs & Thorax: Bilateral breath sounds clear to auscultation [] Abdomen: Bowel sounds normal, soft, left lower quadrant tenderness, no masses, no pulsatile masses. [] Skin: Warm, dry, no erythema, no rash. [] Back: No tenderness, no CVA tenderness. [] Extremities: No tenderness, no cyanosis, no clubbing, ROM intact, no edema. [] Neurologic: Alert and oriented X 3, normal motor function, normal sensory function, no focal deficits noted. [] Psychologic: Affect normal, judgement normal, mood normal. [] Current Patient Data Vital Signs Vital Signs Date Time Temp Pulse Resp B/P (MAP) Pulse Ox O2 Delivery O2 Flow Rate FiO2 11/10/18 17:01 98.6 98 22 121/78 (92) 99 Room Air 98.6 Lab Values Laboratory Tests Test 11/10/18 17:42 11/10/18 18:20 White Blood Count 6.0 x10^3/uL (4.0-11.0) Red Blood Count 4.03 x10^6/uL (3.50-5.40) Hemoglobin 12.7 g/dL (12.0-15.5) Hematocrit 36.7 % (36.0-47.0) Mean Corpuscular Volume 91 fL (79-100) Mean Corpuscular Hemoglobin 31 pg (25-35) Mean Corpuscular Hemoglobin Concent 35 g/dL (31-37) Red Cell Distribution Width 13.6 % (11.5-14.5) Platelet Count 210 x10^3/uL (140-400) Neutrophils (%) (Auto) 75 % (31-73) H Lymphocytes (%) (Auto) 15 % (24-48) L Monocytes (%) (Auto) 9 % (0-9) Eosinophils (%) (Auto) 0 % (0-3) Basophils (%) (Auto) 0 % (0-3) Neutrophils # (Auto) 4.5 x10^3uL (1.8-7.7) Lymphocytes # (Auto) 0.9 x10^3/uL (1.0-4.8) L Monocytes # (Auto) 0.6 x10^3/uL (0.0-1.1) Eosinophils # (Auto) 0.0 x10^3/uL (0.0-0.7) Basophils # (Auto) 0.0 x10^3/uL (0.0-0.2) Maternal Serum HCG Beta Subunit 11679 mIU/mL (0-5) H Sodium Level 135 mmol/L (136-145) L Potassium Level 3.5 mmol/L (3.5-5.1) Chloride Level 100 mmol/L (98-107) Carbon Dioxide Level 26 mmol/L (21-32) Anion Gap 9 (6-14) Blood Urea Nitrogen 9 mg/dL (7-20) Creatinine 0.6 mg/dL (0.6-1.0) Estimated GFR (Cockcroft-Gault) 119.9 BUN/Creatinine Ratio 15 (6-20) Glucose Level 75 mg/dL (70-99) Calcium Level 9.0 mg/dL (8.5-10.1) Total Bilirubin 0.1 mg/dL (0.2-1.0) L Aspartate Amino Transferase (AST) 15 U/L (15-37) Alanine Aminotransferase (ALT) 21 U/L (14-59) Alkaline Phosphatase 62 U/L (46-116) Total Protein 7.6 g/dL (6.4-8.2) Albumin 3.8 g/dL (3.4-5.0) Albumin/Globulin Ratio 1.0 (1.0-1.7) Urine Collection Type Unknown Urine Color Yellow Urine Clarity Clear Urine pH 6.5 Urine Specific [place] 1.015 Urine Protein Negative mg/dL (NEG-TRACE) Urine Glucose (UA) Negative mg/dL (NEG) Urine Ketones (Stick) Negative mg/dL (NEG) Urine Blood Negative (NEG) Urine Nitrite Negative (NEG) Urine Bilirubin Negative (NEG) Urine Urobilinogen Dipstick 0.2 mg/dL (0.2 mg/dL) Urine Leukocyte Esterase Trace (NEG) Urine RBC 0 /HPF (0-2) Urine WBC Rare /HPF (0-4) Urine Squamous Epithelial Cells Few /LPF Urine Bacteria Few /HPF (0-FEW) Laboratory Tests 11/10/18 17:42 Laboratory Tests 11/10/18 17:42 EKG EKG [] Radiology/Procedures Radiology/Procedures [] PATIENT: RADHA GERBER ACCOUNT: [id number] : 1990 LOCATION: ER AGE: 27 SEX: F EXAM STATUS: REG ER ORD. PHYSICIAN: BAYRON DOTSON APRN REASON: abd pain in PROCEDURE: PREG 1ST TRIMESTER OB ultrasound less than 14 weeks 11/10/2018 CLINICAL HISTORY: First trimester with abdominal pain. TECHNIQUE: Using the distended urinary bladder as a sonographic window, a real-time ultrasound examination of the pelvis was formed. Multiple images were obtained. FINDINGS: Comparison study is dated 10/03/2018. A gestational sac is seen within the uterus. Within this gestational sac an embryonic pole is seen. The CRL of this embryonic pole measures 3.27 cm. This corresponds to an estimated gestational age by ultrasound of 10 weeks 1 day plus or minus a standard deviation of 6 days. Embryonic cardiac activity is seen with a heart rate of 180 beats per minutes. The uterus is otherwise within normal limits. The amniotic fluid volume is within normal limits. The placenta is not yet developed. The maternal cervix is closed. It measures 4.5 cm in length. The right ovary is normal in size and echogenicity. It measures 3.6 x 2.0 x 2.6 cm in size. The left ovary is not visualized. No adnexal mass is seen. No free fluid is noted. Since the previous examination there has been appropriate interval growth. IMPRESSION: Single living IUP with an estimated gestational age by ultrasound of 10 weeks 1 day plus or minus a standard deviation of 6 days. Electronically signed by: Mj Plascencia MD (11/10/2018 5:41 PM) [facility] Course & Med Decision Making Course & Med Decision Making Pertinent Labs and Imaging studies reviewed. (See chart for details) Will get labs, and ultrasound. Check Strep test and give nausea medication. Will also get UA. Ultrasound is unremarkable. Labs are unremarkable. Strep is negative. Urine is unremarkable. Will d/c home to follow up with SIGN LANGUAGE INSTRUCTOR. Tati Disclaimer Dragon Disclaimer This electronic medical record was generated, in whole or in part, using a voice recognition dictation system. Departure Departure Impression: Primary Impression: Abdominal pain affecting Additional Impression: Sore throat (viral) Disposition: 01 HOME, SELF-CARE Condition: STABLE Referrals: NO PCP (PCP) SAURAV WILKINS Jr, MD Patient Instructions: Abdominal Pain During Additional Instructions: Thank you for visiting [facility]. We appreciate you trusting us with your care. If any additional problems come up don't hesitate to return to visit us. Please follow up with your primary care provider so they can plan additional care if needed and know about the problem that you had. If symptoms worsen come back to the Emergency Department. Any concerning symptoms that start such as chest pain, shortness of air, weakness or numbness on one side of the body, running high fevers or any other concerning symptoms return to the ER. Please fill your medications at any pharmacy and follow the prescription instructions. Scripts Ondansetron (ONDANSETRON ODT) 4 Mg Tab.rapdis 1 TAB PO PRN Q6-8HRS PRN for NAUSEA, #16 TAB Prov: BAYRON DOTSON APRN 11/10/18 Problem Qualifiers BAYRON DOTSON APRN Nov 10, 2018 17:12
[2018-11-10] MEDS ORDERED: ONDANSETRON ODT 4 MG TAB.RAPDIS. PO ONE (17:15)
--- NOTE | 2018-11-10 17:44 | RAD ---
OB ultrasound less than 14 weeks 11/10/2018 CLINICAL HISTORY: First trimester with abdominal pain. TECHNIQUE: Using the distended urinary bladder as a sonographic window, a real-time ultrasound examination of the pelvis was formed. Multiple images were obtained. FINDINGS: Comparison study is dated 10/03/2018. A gestational sac is seen within the uterus. Within this gestational sac an embryonic pole is seen. The CRL of this embryonic pole measures 3.27 cm. This corresponds to an estimated gestational age by ultrasound of 10 weeks 1 day plus or minus a standard deviation of 6 days. Embryonic cardiac activity is seen with a heart rate of 180 beats per minutes. The uterus is otherwise within normal limits. The amniotic fluid volume is within normal limits. The placenta is not yet developed. The maternal cervix is closed. It measures 4.5 cm in length. The right ovary is normal in size and echogenicity. It measures 3.6 x 2.0 x 2.6 cm in size. The left ovary is not visualized. No adnexal mass is seen. No free fluid is noted. Since the previous examination there has been appropriate interval growth. IMPRESSION: Single living IUP with an estimated gestational age by ultrasound of 10 weeks 1 day plus or minus a standard deviation of 6 days. Electronically signed by: Mj Plascencia MD (11/10/2018 5:41 PM) [facility]
[2018-11-10 17:58] LABS: BASO % 0 % (0-3); EOS % 0 % (0-3); HEMATOCRIT 36.7 % (36.0-47.0); HEMOGLOBIN 12.7 g/dL (12.0-15.5); LYMPH # 0.9 x10^3/uL (1.0-4.8); LYMPH % 15 % (24-48); MEAN CORPUSCULAR HEMOGLOBIN 31 pg (25-35); MEAN CORPUSCULAR HGB CONC 35 g/dL (31-37); MEAN CORPUSCULAR VOLUME 91 fL (79-100); MONO # 0.6 x10^3/uL (0.0-1.1); MONO % 9 % (0-9); NEUT # 4.5 x10^3uL (1.8-7.7); NEUT % 75 % (31-73); PLATELET COUNT 210 x10^3/uL (140-400); RED BLOOD COUNT 4.03 x10^6/uL (3.50-5.40); RED CELL DISTRIBUTION WIDTH 13.6 % (11.5-14.5)
[2018-11-10 18:13] LABS: CREATININE 0.6 mg/dL (0.6-1.0); GFR 119.9; POTASSIUM 3.5 mmol/L (3.5-5.1)
[2018-11-10 18:19] LABS: ALBUMIN 3.8 g/dL (3.4-5.0); TOTAL BILIRUBIN 0.1 mg/dL (0.2-1.0); TOTAL PROTEIN 7.6 g/dL (6.4-8.2)
[2018-11-10 18:31] LABS: BILIRUBIN,URINE NEGATIVE (NEG); CLARITY,URINE CLEAR; COLOR,URINE YELLOW; NITRITE,URINE NEGATIVE (NEG); PH,URINE 6.5; PROTEIN,URINE NEGATIVE (NEG-TRACE); UROBILINOGEN,URINE 0.2 mg/dL (0.2 mg/dL)
[2018-11-10 18:45] LABS: BACTERIA,URINE FEW /HPF (0-FEW); RBC,URINE 0 /HPF (0-2); SQUAMOUS EPITHELIAL CELL,UR FEW /LPF; WBC,URINE RARE /HPF (0-4)
[2018-11-10] MEDS ORDERED: ONDA4TAB12 PO (19:22)
== END 2018-11-10 19:31 | disposition home or self-care (01) ==
LOC: ER 16:02
DX: O26.891 Other specified pregnancy related conditions, first trimester (principal); R10.32 Left lower quadrant pain; J02.8 Acute pharyngitis due to other specified organisms; F17.210 Nicotine dependence, cigarettes, uncomplicated; B97.89 Other viral agents as the cause of diseases classified elsewhere; Z3A.11 11 weeks gestation of pregnancy; Z88.0 Allergy status to penicillin; Z88.1 Allergy status to other antibiotic agents
CPT/HCPCS: 36415; 76801; 80053; 81001; 84702; 85025; 87070; 87086; 87880; 99285; Q0162

== ENCOUNTER 2018-12-23 13:10 | Emergency (ER) | payer OTHER ==
[~2018-12-23] VITALS: Ht 157.5 cm; Wt 51.3 kg
[~2018-12-23 13:10] MED LIST changes: +ONDA4TAB12 PO
[2018-12-23 14:26] LABS: BASO % 0 % (0-3); EOS % 1 % (0-3); HEMATOCRIT 33.6 % (36.0-47.0); HEMOGLOBIN 11.6 g/dL (12.0-15.5); LYMPH # 1.3 x10^3/uL (1.0-4.8); LYMPH % 15 % (24-48); MEAN CORPUSCULAR HEMOGLOBIN 32 pg (25-35); MEAN CORPUSCULAR HGB CONC 35 g/dL (31-37); MEAN CORPUSCULAR VOLUME 92 fL (79-100); MONO # 0.5 x10^3/uL (0.0-1.1); MONO % 5 % (0-9); NEUT # 7.3 x10^3/uL (1.8-7.7); NEUT % 80 % (31-73); PLATELET COUNT 190 x10^3/uL (140-400); RED BLOOD COUNT 3.66 x10^6/uL (3.50-5.40); RED CELL DISTRIBUTION WIDTH 13.2 % (11.5-14.5); WHITE BLOOD COUNT 9.2 x10^3/uL (4.0-11.0)
[2018-12-23 14:27] LABS: BILIRUBIN,URINE NEGATIVE (NEG); CLARITY,URINE CLEAR; COLOR,URINE YELLOW; NITRITE,URINE NEGATIVE (NEG); PROTEIN,URINE NEGATIVE (NEG-TRACE); UROBILINOGEN,URINE 0.2 mg/dL (0.2 mg/dL)
[2018-12-23 14:38] LABS: SQUAMOUS EPITHELIAL CELL,UR MANY /LPF
--- NOTE | 2018-12-23 14:38 | PHYS DOC ---
Past Medical History Past Medical History: No Pertinent History Past Surgical History: No Surgical History Alcohol Use: Sober Drug Use: Marijuana Adult General Chief Complaint Chief Complaint: ABDOMINAL PAIN IN HPI HPI Patient is a 28 year old Female who presents with 16 weeks and experiencing low back pain off and on since Tuesday with low mid abdominal pain that comes and goes. Patient states her abdomen just feels tender or like it is bruised. Patient rates her pain a 4 out of 10. Patient states she also has vaginal discharge that is white that is abnormal for her. Patient denies STD concerns. Review of Systems Review of Systems Constitutional: Denies fever or chills [] Eyes: Denies change in visual acuity, redness, or eye pain [] HENT: Denies nasal congestion or sore throat [] Respiratory: Denies cough or shortness of breath [] Cardiovascular: No additional information not addressed in HPI [] GI: Low mid abdominal pain, denies nausea, vomiting, bloody stools or diarrhea [] : Denies dysuria or hematuria [] Musculoskeletal: Denies back pain or joint pain [] Integument: Denies rash or skin lesions [] Neurologic: Denies headache, focal weakness or sensory changes [] Endocrine: Denies polyuria or polydipsia [] All other systems were reviewed and found to be within normal limits, except as documented in this note. Allergies Allergies Allergies Coded Allergies Type Severity Reaction Last Updated Verified Penicillins Allergy Intermediate vaginal swelling 12/10/13 Yes amoxicillin Allergy Intermediate vaginal swelling 12/10/13 Yes Physical Exam Physical Exam Constitutional: Well developed, well nourished, no acute distress, non-toxic appearance. [] HENT: Normocephalic, atraumatic, bilateral external ears normal, oropharynx moist, no oral exudates, nose normal. [] Eyes: PERRLA, EOMI, conjunctiva normal, no discharge. [] Neck: Normal range of motion, no tenderness, supple, no stridor. [] Cardiovascular:Heart rate regular rhythm, no murmur [] Lungs & Thorax: Bilateral breath sounds clear to auscultation [] Abdomen: Bowel sounds normal, soft, low mid tenderness, no masses, no pulsatile masses. [] Skin: Warm, dry, no erythema, no rash. [] Back: No tenderness, CVA tenderness. [] Extremities: No tenderness, no cyanosis, no clubbing, ROM intact, no edema. [] Neurologic: Alert and oriented X 3, normal motor function, normal sensory function, no focal deficits noted. [] Psychologic: Affect normal, judgement normal, mood normal. [] Current Patient Data Vital Signs Vital Signs Date Time Temp Pulse Resp B/P (MAP) Pulse Ox O2 Delivery O2 Flow Rate FiO2 12/23/18 14:40 72 14 110/71 (84) 99 Room Air 12/23/18 13:53 98.4 98.4 Lab Values Laboratory Tests Test 12/23/18 13:44 12/23/18 14:10 POC Urine HCG, Qualitative Hcg positive (Negative) White Blood Count 9.2 x10^3/uL (4.0-11.0) Red Blood Count 3.66 x10^6/uL (3.50-5.40) Hemoglobin 11.6 g/dL (12.0-15.5) L Hematocrit 33.6 % (36.0-47.0) L Mean Corpuscular Volume 92 fL (79-100) Mean Corpuscular Hemoglobin 32 pg (25-35) Mean Corpuscular Hemoglobin Concent 35 g/dL (31-37) Red Cell Distribution Width 13.2 % (11.5-14.5) Platelet Count 190 x10^3/uL (140-400) Neutrophils (%) (Auto) 80 % (31-73) H Lymphocytes (%) (Auto) 15 % (24-48) L Monocytes (%) (Auto) 5 % (0-9) Eosinophils (%) (Auto) 1 % (0-3) Basophils (%) (Auto) 0 % (0-3) Neutrophils # (Auto) 7.3 x10^3/uL (1.8-7.7) Lymphocytes # (Auto) 1.3 x10^3/uL (1.0-4.8) Monocytes # (Auto) 0.5 x10^3/uL (0.0-1.1) Eosinophils # (Auto) 0.0 x10^3/uL (0.0-0.7) Basophils # (Auto) 0.0 x10^3/uL (0.0-0.2) Urine Collection Type Unknown Urine Color Yellow Urine Clarity Clear Urine pH 7.0 Urine Specific [place] 1.015 Urine Protein Negative mg/dL (NEG-TRACE) Urine Glucose (UA) Negative mg/dL (NEG) Urine Ketones (Stick) Negative mg/dL (NEG) Urine Blood Negative (NEG) Urine Nitrite Negative (NEG) Urine Bilirubin Negative (NEG) Urine Urobilinogen Dipstick 0.2 mg/dL (0.2 mg/dL) Urine Leukocyte Esterase Small (NEG) Urine RBC 1-2 /HPF (0-2) Urine WBC 1-4 /HPF (0-4) Urine Squamous Epithelial Cells Many /LPF Urine Transitional Epithelial Cells Few /LPF Urine Bacteria Many /HPF (0-FEW) Urine Mucus Mod /LPF Maternal Serum HCG Beta Subunit 5481 mIU/mL (0-5) H Sodium Level 138 mmol/L (136-145) Potassium Level 3.7 mmol/L (3.5-5.1) Chloride Level 105 mmol/L (98-107) Carbon Dioxide Level 24 mmol/L (21-32) Anion Gap 9 (6-14) Blood Urea Nitrogen 6 mg/dL (7-20) L Creatinine 0.5 mg/dL (0.6-1.0) L Estimated GFR (Cockcroft-Gault) 146.9 BUN/Creatinine Ratio 12 (6-20) Glucose Level 89 mg/dL (70-99) Calcium Level 8.6 mg/dL (8.5-10.1) Total Bilirubin 0.2 mg/dL (0.2-1.0) Aspartate Amino Transferase (AST) 13 U/L (15-37) L Alanine Aminotransferase (ALT) 17 U/L (14-59) Alkaline Phosphatase 55 U/L (46-116) Total Protein 6.9 g/dL (6.4-8.2) Albumin 3.3 g/dL (3.4-5.0) L Albumin/Globulin Ratio 0.9 (1.0-1.7) L Lipase 86 U/L (73-393) Laboratory Tests 12/23/18 14:10 Laboratory Tests 12/23/18 14:10 Microbiology 12/23/18 Wet Prep - Final, Complete EKG EKG [] Radiology/Procedures Radiology/Procedures [] Impressions: [facility] [address] [place] [address] IMAGING REPORT Signed PATIENT: ZABRINARADHA ACCOUNT: [id number] : 1990 LOCATION: ER AGE: 28 SEX: F EXAM STATUS: REG ER ORD. PHYSICIAN: LONG FERRER APRN REASON: ABDOMINAL PAIN PROCEDURE: PREG MORE THAN OR EQ TO 14 WKS Limited obstetric ultrasound greater than 14 weeks COMPARISON: Obstetric ultrasound November 10, 2018. HISTORY: Abdominal pain. TECHNIQUE: Transabdominal transducer with grayscale, M-mode Doppler sonography utilized FINDINGS: Cervical length 4.3 cm. No shortening or funneling of the cervix documented. Anterior placenta. No placenta previa. Subjectively normal volume of amniotic fluid. Maternal ovaries not visualized. Single living intrauterine fetus in breech position with estimated sonographic gestational age of 16 weeks 3 days and date of delivery of June 06, 2019. Estimated weight 165 g. On the prior study from November 10, 2018 estimated sonographic gestational age was 10 weeks 1 day. Biparietal diameter 3.22 cm, gestational age 16 weeks 0 days, 3rd percentile. Head circumference 12.80 cm, gestational age 16 weeks 4 days, 4th percentile. Abdominal circumference 10.90 cm, gestational age 16 weeks 5 days, 23rd percentile. Femur length 2.21 cm, gestational age 16 weeks 4 days, 13th percentile. heart rate 140 bpm. Anatomic evaluation was not performed. IMPRESSION: Single living intrauterine with estimated sonographic gestational age of 16 weeks 3 days. There has been expected growth since the prior study as described above. Electronically signed by: Peewee Paulino MD (12/23/2018 3:24 PM) [facility] [place] DICTATED and SIGNED BY: PEEWEE PAULINO MD DATE: 12/23/18 1524 Course & Med Decision Making Course & Med Decision Making Patient is a 28 year old Female who presents with 16 weeks and exper iencing low back pain off and on since Tuesday with low mid abdominal pain that comes and goes. Patient states she has established care with Dr Wilkins. Patient states her abdomen just feels tender or like it is bruised. Patient rates her pain a 4 out of 10. Patient states she also has vaginal discharge that is white that is abnormal for her. Patient denies STD concerns. Alert and oriented. Vital signs are within normal limits. Patient denies dysuria, fevers or recent illness or vaginal bleeding. Low mid abdomen is tender with palpation. Lungs are clear to auscultation all lobes. Skin is pink warm and dry. Patient states she smokes marijuana to help with her nausea. No extremity swelling. CVA tenderness bilaterally. Blood work unremarkable. Urinalysis is contaminated but sent for culture. Chlam and gonorrhea is sent to lab. for Wet prep show no infections. Patient states she has no STD concerns. US shows IMPRESSION: Single living intrauterine with estimated sonographic gestational age of 16 weeks 3 days. There has been expected growth since the prior study as described above. 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 Patient is told to drink plenty of fluids. Dragon Disclaimer Dragon Disclaimer This electronic medical record was generated, in whole or in part, using a voice recognition dictation system. Departure Departure Impression: Primary Impression: Abdominal pain affecting Disposition: 01 HOME, SELF-CARE Condition: STABLE Referrals: NO PCP (PCP) Patient Instructions: Abdominal Pain During Additional Instructions: Follow up with Dr Wilkins as soon as possible. Return for severe pain or vaginal bleeding. LONG FERRER DIRECTOR LEARNING SERVICES Dec 23, 2018 14:38
[2018-12-23 14:39] LABS: BACTERIA,URINE MANY /HPF (0-FEW)
[2018-12-23 14:40] VITALS: BP 110/71
[2018-12-23 14:41] LABS: CALCIUM 8.6 mg/dL (8.5-10.1); CREATININE 0.5 mg/dL (0.6-1.0); GFR 146.9; POTASSIUM 3.7 mmol/L (3.5-5.1)
[2018-12-23 14:48] LABS: ALBUMIN 3.3 g/dL (3.4-5.0); ALBUMIN/GLOBULIN RATIO 0.9 (1.0-1.7); TOTAL BILIRUBIN 0.2 mg/dL (0.2-1.0); TOTAL PROTEIN 6.9 g/dL (6.4-8.2)
--- NOTE | 2018-12-23 15:27 | RAD ---
Limited obstetric ultrasound greater than 14 weeks COMPARISON: Obstetric ultrasound November 10, 2018. HISTORY: Abdominal pain. TECHNIQUE: Transabdominal transducer with grayscale, M-mode Doppler sonography utilized FINDINGS: Cervical length 4.3 cm. No shortening or funneling of the cervix documented. Anterior placenta. No placenta previa. Subjectively normal volume of amniotic fluid. Maternal ovaries not visualized. Single living intrauterine fetus in breech position with estimated sonographic gestational age of 16 weeks 3 days and date of delivery of June 06, 2019. Estimated weight 165 g. On the prior study from November 10, 2018 estimated sonographic gestational age was 10 weeks 1 day. Biparietal diameter 3.22 cm, gestational age 16 weeks 0 days, 3rd percentile. Head circumference 12.80 cm, gestational age 16 weeks 4 days, 4th percentile. Abdominal circumference 10.90 cm, gestational age 16 weeks 5 days, 23rd percentile. Femur length 2.21 cm, gestational age 16 weeks 4 days, 13th percentile. heart rate 140 bpm. Anatomic evaluation was not performed. IMPRESSION: Single living intrauterine with estimated sonographic gestational age of 16 weeks 3 days. There has been expected growth since the prior study as described above. Electronically signed by: Severino Paulino MD (12/23/2018 3:24 PM) [facility] [place]
[2018-12-25 18:11] LABS: GC PROBE Negative (Negative)
== END 2018-12-23 16:23 | disposition home or self-care (01) ==
LOC: ER 13:10
DX: O26.892 Other specified pregnancy related conditions, second trimester (principal); M54.5 Low back pain; R10.30 Lower abdominal pain, unspecified; Z88.0 Allergy status to penicillin; Z88.1 Allergy status to other antibiotic agents; Z3A.16 16 weeks gestation of pregnancy
CPT/HCPCS: 36415; 76805; 80053; 81001; 81025; 83690; 84702; 85025; 87086; 87491; 87591; 99285; Q0111

== ENCOUNTER 2019-01-11 16:05 | Observation (INO) | payer OTHER ==
[2019-01-11] MEDS ORDERED: IV RINGERS,LACTATED 1000ML 1,000 ML IV SCH (16:26)
[2019-01-11 16:37] LABS: BILIRUBIN,URINE NEGATIVE (NEG); CLARITY,URINE CLEAR; COLOR,URINE YELLOW; NITRITE,URINE NEGATIVE (NEG); PROTEIN,URINE NEGATIVE (NEG-TRACE); UROBILINOGEN,URINE 0.2 mg/dL (0.2 mg/dL)
[2019-01-11 16:42] LABS: BACTERIA,URINE FEW /HPF (0-FEW); RBC,URINE 0 /HPF (0-2); SQUAMOUS EPITHELIAL CELL,UR OCC /LPF; WBC,URINE 0 /HPF (0-4)
[2019-01-11 16:51] LABS: BARBITURATES NEG (NEG); BENZODIAZEPINES NEG (NEG); CANNABINOIDS POS (NEG); COCAINE NEG (NEG); METHADONE NEG (NEG); OPIATES NEG (NEG); PHENCYCLIDINE NEG (NEG)
[2019-01-11 16:52] LABS: AMPHETAMINE/METHAMPHETAMINE NEG (NEG)
== END 2019-01-11 17:15 | disposition home or self-care (01) ==
LOC: 3 SO LND 16:05
PROVIDERS: ADMIT Obstetrics & Gynecology; ATTEND Obstetrics & Gynecology
DX: O26.892 Other specified pregnancy related conditions, second trimester (principal); N89.8 Other specified noninflammatory disorders of vagina; R51 Headache; H53.8 Other visual disturbances; O99.89 Other specified diseases and conditions complicating pregnancy, childbirth and the puerperium; M54.9 Dorsalgia, unspecified; Z3A.20 20 weeks gestation of pregnancy
CPT/HCPCS: 80307; 81001; G0378; G0379

== ENCOUNTER 2019-02-16 11:39 | Observation (INO) | payer OTHER ==
[2019-02-16] MEDS ORDERED: IV RINGERS,LACTATED 1000ML 1,000 ML IV PRN (12:15)
[2019-02-16 12:31] LABS: AMNIO PT NEGATIVE
[2019-02-16 12:36] LABS: BILIRUBIN,URINE NEGATIVE (NEG); CLARITY,URINE CLEAR; COLOR,URINE YELLOW; NITRITE,URINE NEGATIVE (NEG); PROTEIN,URINE NEGATIVE (NEG-TRACE); UROBILINOGEN,URINE 0.2 mg/dL (0.2 mg/dL)
[2019-02-16 12:42] LABS: SQUAMOUS EPITHELIAL CELL,UR MANY /LPF
[2019-02-16 12:43] LABS: BACTERIA,URINE MANY /HPF (0-FEW); RBC,URINE 0 /HPF (0-2)
[2019-02-16 12:44] LABS: AMPHETAMINE/METHAMPHETAMINE NEG (NEG); BARBITURATES NEG (NEG); BENZODIAZEPINES NEG (NEG); CANNABINOIDS NEG (NEG); COCAINE NEG (NEG); METHADONE NEG (NEG); OPIATES NEG (NEG); PHENCYCLIDINE NEG (NEG)
== END 2019-02-16 13:29 | disposition home or self-care (01) ==
LOC: 3 SO LND 11:39
PROVIDERS: ADMIT Obstetrics & Gynecology; ATTEND Obstetrics & Gynecology
DX: O26.893 Other specified pregnancy related conditions, third trimester (principal)
CPT/HCPCS: 36415; 80307; 81001; 84112; 87086; G0378; G0379

== ENCOUNTER → 2019-03-13 | Outpatient (CLI) | payer OTHER ==
--- NOTE | 2019-03-13 16:07 | RAD ---
EXAM: Obstetrics sonogram. HISTORY: Uterine size and dates discrepancy. TECHNIQUE: Sonographic imaging of a gravid uterus was performed. COMPARISON: 12/23/2018. FINDINGS: There is a single intrauterine fetus in cephalic presentation with a heart rate of 133 bpm. There is a three-vessel umbilical cord with normal insertion. There is normal body motion. The stomach, kidneys, bladder, spine, brain, facial profile and extremities are unremarkable. The cervix is closed and measures 4.3 cm in length. There is an anterior placenta without evidence of placenta previa. The amniotic fluid index is normal at 11.2 cm. The biparietal diameter is 7.0 cm, corresponding with 20 weeks and 1 day. The head circumference is 25.83 cm, corresponding with 28 weeks and 1 day. The abdominal sequential images 23.66 cm, corresponding with 20 weeks and 0 days. The femoral length is 5.34 cm, corresponding with 28 weeks and 2 days. The estimated gestational age patient combined ultrasound measurements is 28 weeks and 1 day and the estimated due date is 06/04/2019. The estimated weight is 1177 g. IMPRESSION: 1. Single intrauterine fetus with an estimated gestational age based on ultrasound measurements of 20 weeks and 1 day. The estimated weight is at the 36th percentile for an estimated gestational age of 29 weeks and 0 days based on LMP. 2. Unremarkable anatomy survey. Electronically signed by: Mikayla Hull MD (03/13/2019 4:04 PM) [place] [id number]
== END | disposition home or self-care (01) ==
LOC: US 15:24
PROVIDERS: ATTEND Obstetrics & Gynecology
DX: O26.842 Uterine size-date discrepancy, second trimester (principal); Z3A.20 20 weeks gestation of pregnancy
CPT/HCPCS: 76805

== ENCOUNTER 2019-03-26 18:13 | Observation (INO) | payer OTHER ==
[2019-03-26 18:52] LABS: AMPHETAMINE/METHAMPHETAMINE NEG (NEG); BARBITURATES NEG (NEG); BENZODIAZEPINES NEG (NEG); CANNABINOIDS NEG (NEG); COCAINE NEG (NEG); METHADONE NEG (NEG); OPIATES NEG (NEG); PHENCYCLIDINE NEG (NEG)
[2019-03-26 18:53] LABS: BILIRUBIN,URINE NEGATIVE (NEG); CLARITY,URINE CLEAR; COLOR,URINE YELLOW; NITRITE,URINE NEGATIVE (NEG); PROTEIN,URINE NEGATIVE (NEG-TRACE); UROBILINOGEN,URINE 0.2 mg/dL (0.2 mg/dL)
[2019-03-26 19:08] LABS: BACTERIA,URINE FEW /HPF (0-FEW); RBC,URINE 0 /HPF (0-2); SQUAMOUS EPITHELIAL CELL,UR OCC /LPF; WBC,URINE OCC /HPF (0-4)
== END 2019-03-26 19:40 | disposition home or self-care (01) ==
LOC: 3 SO LND 18:13
PROVIDERS: ADMIT Obstetrics & Gynecology; ATTEND Obstetrics & Gynecology
DX: O26.893 Other specified pregnancy related conditions, third trimester (principal); R10.2 Pelvic and perineal pain; M54.9 Dorsalgia, unspecified; Z3A.30 30 weeks gestation of pregnancy
CPT/HCPCS: 80307; 81001; G0378; G0379

== ENCOUNTER 2019-04-17 11:59 | Observation (INO) | payer OTHER ==
[2019-04-17] MEDS ORDERED: IV RINGERS,LACTATED 1000ML 1,000 ML IV SCH (12:12)
[2019-04-17 12:31] LABS: BILIRUBIN,URINE NEGATIVE (NEG); COLOR,URINE YELLOW; NITRITE,URINE NEGATIVE (NEG); PH,URINE 6.5; PROTEIN,URINE NEGATIVE (NEG-TRACE)
[2019-04-17 13:05] LABS: CLARITY,URINE HAZY
[2019-04-17 13:07] LABS: BACTERIA,URINE MANY /HPF (0-FEW); RBC,URINE OCC /HPF (0-2); SQUAMOUS EPITHELIAL CELL,UR MOD /LPF; WBC,URINE 20-40 /HPF (0-4)
[2019-04-17 13:17] LABS: AMNIO PT NEGATIVE
== END 2019-04-17 14:03 | disposition home or self-care (01) ==
LOC: 3 SO LND 11:59
PROVIDERS: ADMIT Obstetrics & Gynecology; ATTEND Obstetrics & Gynecology
DX: O42.913 Preterm premature rupture of membranes, unspecified as to length of time between rupture and onset of labor, third trimester (principal); O62.9 Abnormality of forces of labor, unspecified; Z3A.32 32 weeks gestation of pregnancy
CPT/HCPCS: 36415; 81001; 84112; 87086; G0378; G0379

== ENCOUNTER 2019-05-10 19:18 | Observation (INO) | payer OTHER ==
[2019-05-10] MEDS ORDERED: IV RINGERS,LACTATED 1000ML 1,000 ML IV SCH (19:26)
[2019-05-10 20:00] LABS: BILIRUBIN,URINE NEGATIVE (NEG); CLARITY,URINE CLEAR; COLOR,URINE YELLOW; NITRITE,URINE NEGATIVE (NEG); PH,URINE 6.5; PROTEIN,URINE NEGATIVE (NEG-TRACE); UROBILINOGEN,URINE 0.2 mg/dL (0.2 mg/dL)
[2019-05-10 20:07] LABS: AMNIO PT NEGATIVE
[2019-05-10 20:10] LABS: BACTERIA,URINE FEW /HPF (0-FEW); RBC,URINE OCC /HPF (0-2); SQUAMOUS EPITHELIAL CELL,UR MOD /LPF; WBC,URINE OCC /HPF (0-4)
== END 2019-05-10 20:45 | disposition home or self-care (01) ==
LOC: 3 SO LND 19:18
PROVIDERS: ADMIT Obstetrics & Gynecology; ATTEND Obstetrics & Gynecology
DX: O42.92 Full-term premature rupture of membranes, unspecified as to length of time between rupture and onset of labor (principal); Z3A.38 38 weeks gestation of pregnancy
CPT/HCPCS: 36415; 81001; 84112; G0378; G0379

== ENCOUNTER 2019-05-23 15:22 | Observation (INO) | payer OTHER ==
[2019-05-23] MEDS ORDERED: IV RINGERS,LACTATED 1000ML 1,000 ML IV PRN (15:45)
--- NOTE | 2019-05-23 16:51 | RAD ---
EXAM: biophysical profile. HISTORY: Decreased movement. Possible oligohydramnios. TECHNIQUE: Sonographic imaging of a gravid uterus was performed. COMPARISON: 03/13/2019. FINDINGS: There is a single intrauterine fetus in cephalic presentation with a normal heart rate of 127 bpm. There is a normal amniotic fluid volume of 17.7 cm. There is normal breathing motion, body motion and tone. The biophysical profile is 8/8. There is an anterior placenta without evidence of placenta previa. The estimated gestational age based on clinical assessment is 39 weeks and 1 day. IMPRESSION: 1. Single intrauterine fetus in cephalic presentation with a normal heart rate and gestational age based on clinical assessment of 39 weeks and 1 day. 2. Normal biophysical profile of 8/8. Electronically signed by: Mikayla Hull MD (05/23/2019 4:48 PM) [id number]
[2019-05-29] MEDS ORDERED: IBUP-1027 PO (08:28)
== END 2019-05-23 16:30 | disposition home or self-care (01) ==
LOC: 3 SO LND 15:22
PROVIDERS: ADMIT Obstetrics & Gynecology; ATTEND Obstetrics & Gynecology
DX: O36.8130 Decreased fetal movements, third trimester, not applicable or unspecified (principal); Z3A.39 39 weeks gestation of pregnancy; Z88.0 Allergy status to penicillin
CPT/HCPCS: 76819; G0378; G0379; 59025

== ENCOUNTER 2020-03-21 16:50 | Emergency (ER) | payer OTHER ==
[~2020-03-21] VITALS: Ht 157.5 cm; Wt 48.0 kg
[~2020-03-21 16:50] MED LIST changes: +IBUP-1027 PO
[2020-03-21 17:15] VITALS: BP 102/70
--- NOTE | 2020-03-21 17:51 | PHYS DOC ---
Past Medical History Past Medical History: No Pertinent History Past Surgical History: No Surgical History Smoking Status: Current Every Day Smoker Alcohol Use: Sober Drug Use: Marijuana General Adult EDM: Chief Complaint: CHEST WALL PAIN HPI: HPI: Patient is a 29 year old female who presented to ER today for evaluation of chest pain that been going on for 4 days. Patient also complained of trouble breathing, chest pain is worse with deep breathing or cough. Patient is a smoker, she smokes half a pack a day. Patient has nonproductive cough. Patient denies any abdominal pain, no nausea vomiting. Patient said her coworker tested positive for Covid a few days ago. Patient denies any recent travel or operation. Patient denies any history of blood clot disorder. Review of Systems: Review of Systems: Constitutional: Denies fever or chills. [] Eyes: Denies change in visual acuity. [] HENT: Denies nasal congestion or sore throat. [] Respiratory: Positive for cough and shortness of breath. [] Cardiovascular: Positive for chest pain, no edema. [] GI: Denies abdominal pain, nausea, vomiting, bloody stools or diarrhea. [] : Denies dysuria. [] Musculoskeletal: Denies back pain or joint pain. [] Integument: Denies rash. [] Neurologic: Denies headache, focal weakness or sensory changes. [] Endocrine: Denies polyuria or polydipsia. [] Lymphatic: Denies swollen glands. [] Psychiatric: Denies depression or anxiety. [] Heart Score: HEART Score for Chest Pain: HEART Score for Chest Pain Response (Comments) Value History Slighlty/Non-Suspicious 0 ECG Normal 0 Age < 45 0 Risk Factors 1 or 2 Risk Factors 1 Troponin < Normal Limit 0 Total 1 Risk Factors: Risk Factors: DM, Current or recent (<one month) smoker, HTN, HLP, family history of CAD, obesity. Risk Scores: Score 0 - 3: 2.5% MACE over next 6 weeks - Discharge Home Score 4 - 6: 20.3% MACE over next 6 weeks - Admit for Clinical Observation Score 7 - 10: 72.7% MACE over next 6 weeks - Early Invasive Strategies Allergies: Allergies: Allergies Coded Allergies Type Severity Reaction Last Updated Verified Penicillins Allergy Intermediate vaginal swelling 05/28/19 Yes amoxicillin Allergy Intermediate vaginal swelling 05/28/20 Yes Physical Exam: PE: Constitutional: Well developed, well nourished, no acute distress, non-toxic appearance. [] HENT: Normocephalic, atraumatic, bilateral external ears normal, oropharynx akash st, no oral exudates, nose normal. [] Eyes: PERRLA, EOMI, conjunctiva normal, no discharge. [] Neck: Normal range of motion, no tenderness, supple, no stridor. [] Cardiovascular:Heart rate regular rhythm, no murmur [] Lungs & Thorax: Bilateral breath sounds clear to auscultation [] Abdomen: Bowel sounds normal, soft, no tenderness, no masses, no pulsatile masses. [] Skin: Warm, dry, no erythema, no rash. [] Back: No tenderness, no CVA tenderness. [] Extremities: No tenderness, no cyanosis, no clubbing, ROM intact, no edema. [] Neurologic: Alert and oriented X 3, normal motor function, normal sensory function, no focal deficits noted. [] Psychologic: Affect normal, judgement normal, mood normal. [] EKG: EKG: EKG was done at 1703 heart rate of 90 beats per minute, normal sinus rhythm, no ST segment elevation, QT 340 MS , QTC 420 MS Radiology/Procedures: Radiology/Procedures: [] Course & Med Decision Making: Course & Med Decision Making Pertinent Labs and Imaging studies reviewed. (See chart for details) Patient is a 29-year-old female who presented to ER for evaluation of 4-day history of chest pain, chest x-ray and lab work is pending at this time, patient case is endorsed to incoming physician at shift change, Dr. Fuentes. Tati Disclaimer: Tati Disclaimer: This electronic medical record was generated, in whole or in part, using a voice recognition dictation system. Departure Departure Impression: Primary Impression: Chest pain Additional Impression: Upper respiratory infection Condition: STABLE Referrals: NO PCP (PCP) MELI GRANDA DO Mar 21, 2020 17:51
[2020-03-21 18:09] LABS: BASO % 1 % (0-3); EOS % 1 % (0-3); HEMATOCRIT 43.4 % (36.0-47.0); HEMOGLOBIN 14.5 g/dL (12.0-15.5); LYMPH # 1.9 x10^3/uL (1.0-4.8); LYMPH % 28 % (24-48); MEAN CORPUSCULAR HEMOGLOBIN 30 pg (25-35); MEAN CORPUSCULAR HGB CONC 33 g/dL (31-37); MEAN CORPUSCULAR VOLUME 90 fL (79-100); MONO # 0.5 x10^3/uL (0.0-1.1); MONO % 7 % (0-9); NEUT # 4.3 x10^3/uL (1.8-7.7); NEUT % 64 % (31-73); PLATELET COUNT 216 x10^3/uL (140-400); RED BLOOD COUNT 4.84 x10^6/uL (3.50-5.40); RED CELL DISTRIBUTION WIDTH 13.7 % (11.5-14.5); WHITE BLOOD COUNT 6.8 x10^3/uL (4.0-11.0)
[2020-03-21 18:10] LABS: BILIRUBIN,URINE NEGATIVE (NEG); CLARITY,URINE CLEAR; COLOR,URINE YELLOW; NITRITE,URINE NEGATIVE (NEG); PH,URINE 7.5 (<5.0-8.0); PROTEIN,URINE NEGATIVE (NEG-TRACE); UROBILINOGEN,URINE 0.2 mg/dL (0.2 mg/dL)
[2020-03-21 18:14] LABS: CALCIUM 9.6 mg/dL (8.5-10.1); CREATININE 0.7 mg/dL (0.6-1.0); GFR 98.9; POTASSIUM 4.1 mmol/L (3.5-5.1)
[2020-03-21 18:20] LABS: ALBUMIN 4.6 g/dL (3.4-5.0); ALBUMIN/GLOBULIN RATIO 1.4 (1.0-1.7); MAGNESIUM 2.5 mg/dL (1.8-2.4); TOTAL BILIRUBIN 0.2 mg/dL (0.2-1.0); TOTAL PROTEIN 7.8 g/dL (6.4-8.2)
[2020-03-21 18:23] LABS: BACTERIA,URINE MODERATE /HPF (0-FEW); RBC,URINE 0 /HPF (0-2)
[2020-03-21] MEDS ORDERED: ALBU2.5V8 IH (18:57)
[2020-03-21] MEDS ORDERED: BENZ100C PO (18:57)
--- NOTE | 2020-03-21 18:59 | PHYS DOC ---
Past Medical History Past Medical History: No Pertinent History Past Surgical History: No Surgical History Smoking Status: Current Every Day Smoker Alcohol Use: Sober Drug Use: Marijuana General Adult EDM: Chief Complaint: CHEST WALL PAIN HPI: HPI: Patient is a 29 year old [f__sex] who presents with [] Review of Systems: Review of Systems: Constitutional: Denies fever or chills. [] Eyes: Denies change in visual acuity. [] HENT: Denies nasal congestion or sore throat. [] Respiratory: Denies cough or shortness of breath. [] Cardiovascular: Denies chest pain or edema. [] GI: Denies abdominal pain, nausea, vomiting, bloody stools or diarrhea. [] : Denies dysuria. [] Musculoskeletal: Denies back pain or joint pain. [] Integument: Denies rash. [] Neurologic: Denies headache, focal weakness or sensory changes. [] Endocrine: Denies polyuria or polydipsia. [] Lymphatic: Denies swollen glands. [] Psychiatric: Denies depression or anxiety. [] Heart Score: Risk Factors: Risk Factors: DM, Current or recent (<one month) smoker, HTN, HLP, family history of CAD, obesity. Risk Scores: Score 0 - 3: 2.5% MACE over next 6 weeks - Discharge Home Score 4 - 6: 20.3% MACE over next 6 weeks - Admit for Clinical Observation Score 7 - 10: 72.7% MACE over next 6 weeks - Early Invasive Strategies Allergies: Allergies: Allergies Coded Allergies Type Severity Reaction Last Updated Verified Penicillins Allergy Intermediate vaginal swelling 1/20/20 Yes amoxicillin Allergy Intermediate vaginal swelling 1/20/20 Yes Physical Exam: PE: Constitutional: Well developed, well nourished, no acute distress, non-toxic appearance. [] HENT: Normocephalic, atraumatic, bilateral external ears normal, oropharynx moist, no oral exudates, nose normal. [] Eyes: PERRLA, EOMI, conjunctiva normal, no discharge. [] Neck: Normal range of motion, no tenderness, supple, no stridor. [] Cardiovascular:Heart rate regular rhythm, no murmur [] Lungs & Thorax: Bilateral breath sounds clear to auscultation [] Abdomen: Bowel sounds normal, soft, no tenderness, no masses, no pulsatile masses. [] Skin: Warm, dry, no erythema, no rash. [] Back: No tenderness, no CVA tenderness. [] Extremities: No tenderness, no cyanosis, no clubbing, ROM intact, no edema. [] Neurologic: Alert and oriented X 3, normal motor function, normal sensory function, no focal deficits noted. [] Psychologic: Affect normal, judgement normal, mood normal. [] Current Patient Data: Labs: Laboratory Tests Test 03/21/20 17:50 03/21/20 17:55 03/21/20 17:59 White Blood Count 6.8 x10^3/uL (4.0-11.0) Red Blood Count 4.84 x10^6/uL (3.50-5.40) Hemoglobin 14.5 g/dL (12.0-15.5) Hematocrit 43.4 % (36.0-47.0) Mean Corpuscular Volume 90 fL (79-100) Mean Corpuscular Hemoglobin 30 pg (25-35) Mean Corpuscular Hemoglobin Concent 33 g/dL (31-37) Red Cell Distribution Width 13.7 % (11.5-14.5) Platelet Count 216 x10^3/uL (140-400) Neutrophils (%) (Auto) 64 % (31-73) Lymphocytes (%) (Auto) 28 % (24-48) Monocytes (%) (Auto) 7 % (0-9) Eosinophils (%) (Auto) 1 % (0-3) Basophils (%) (Auto) 1 % (0-3) Neutrophils # (Auto) 4.3 x10^3/uL (1.8-7.7) Lymphocytes # (Auto) 1.9 x10^3/uL (1.0-4.8) Monocytes # (Auto) 0.5 x10^3/uL (0.0-1.1) Eosinophils # (Auto) 0.0 x10^3/uL (0.0-0.7) Basophils # (Auto) 0.0 x10^3/uL (0.0-0.2) D-Dimer (Nereida) 0.33 ug/mlFEU (0.00-0.50) Sodium Level 141 mmol/L (136-145) Potassium Level 4.1 mmol/L (3.5-5.1) Chloride Level 103 mmol/L (98-107) Carbon Dioxide Level 25 mmol/L (21-32) Anion Gap 13 (6-14) Blood Urea Nitrogen 14 mg/dL (7-20) Creatinine 0.7 mg/dL (0.6-1.0) Estimated GFR (Cockcroft-Gault) 98.9 BUN/Creatinine Ratio 20 (6-20) Glucose Level 75 mg/dL (70-99) Calcium Level 9.6 mg/dL (8.5-10.1) Magnesium Level 2.5 mg/dL (1.8-2.4) H Total Bilirubin 0.2 mg/dL (0.2-1.0) Aspartate Amino Transferase (AST) 17 U/L (15-37) Alanine Aminotransferase (ALT) 16 U/L (14-59) Alkaline Phosphatase 76 U/L (46-116) Troponin I Quantitative < 0.017 ng/mL (0.000-0.055) Total Protein 7.8 g/dL (6.4-8.2) Albumin 4.6 g/dL (3.4-5.0) Albumin/Globulin Ratio 1.4 (1.0-1.7) Lipase 105 U/L (73-393) Urine Collection Type Unknown Urine Color Yellow Urine Clarity Clear Urine pH 7.5 (<5.0-8.0) Urine Specific [place] 1.010 (1.000-1.030) Urine Protein Negative mg/dL (NEG-TRACE) Urine Glucose (UA) Negative mg/dL (NEG) Urine Ketones (Stick) Negative mg/dL (NEG) Urine Blood Negative (NEG) Urine Nitrite Negative (NEG) Urine Bilirubin Negative (NEG) Urine Urobilinogen Dipstick 0.2 mg/dL (0.2 mg/dL) Urine Leukocyte Esterase Small (NEG) Urine RBC 0 /HPF (0-2) Urine WBC 5-10 /HPF (0-4) Urine Squamous Epithelial Cells Few /LPF Urine Bacteria Moderate /HPF (0-FEW) Urine Mucus Slight /LPF POC Urine HCG, Qualitative Hcg negative (Negative) Laboratory Tests 03/21/20 17:50 Laboratory Tests 03/21/20 17:50 EKG: EKG: [] Radiology/Procedures: Radiology/Procedures: [] Course & Med Decision Making: Course & Med Decision Making Pertinent Labs and Imaging studies reviewed. (See chart for details) I have received signout on the patient's emergency department care from Dr. Deutsch. We discussed the history, physical exam findings, completed and pending laboratory results and imaging studies. We have also discussed the current treatment plan and expected clinical course. Please refer to further update notes for additional information regarding the patient's final diagnosis and disposition. In brief patient is a 29-year-old female with no past medical to who presents with chief complaint of chest pain for the past 4 days. She notes the chest pain is slightly worse when she breathes deeply. States she does have a no nproductive cough. She notes that she smokes half pack cigarettes daily. States that her 's coworker tested positive for Covid a few days ago. Initial EKG without acute ischemic changes. Basic labs including troponin were obtained and were negative. D-dimer negative. Given she is low risk Wells and PERC criteria CT PE study will be deferred. On my evaluation is normal oxygenation without signs of respiratory distress. No wheezes appreciated. I do feel her shortness of breath and cough could relate to viral illness versus her tobacco abuse. I do feel she is appropriate for discharge home. Low risk heart score by my estimation. She be discharged home with an albuterol inhaler and Tessalon Perles. She was instructed to quarantine until results return testing. Return precautions discussed and understood. Stable for discharge home. COVID-19 CRITERIA: The patient was evaluated during the global COVID-19 pandemic, and that diagnosis was suspected/considered upon their initial presentation. Their evaluation, treatment and testing was consistent with cur rent guidelines for patients who present with complaints or symptoms that may be related to COVID-19. Tati Disclaimer: Tati Disclaimer: This electronic medical record was generated, in whole or in part, using a voice recognition dictation system. Departure Departure Impression: Primary Impression: Chest pain Qualified Codes: R07.9 - Chest pain, unspecified Additional Impression: Upper respiratory infection Qualified Codes: J06.9 - Acute upper respiratory infection, unspecified Disposition: 01 DC HOME SELF CARE/HOMELESS Condition: STABLE Referrals: NO PCP (PCP) Additional Instructions: You have been tested for or diagnosed with COVID-19. It is an infection caused by a new type of coronavirus. COVID-19 will cause cold-like or mild flu symptoms in most. It can cause more severe symptoms like problems breathing in some. There is no treatment for COVID-19. The body will clear the infection over time. Self-care will help to ease discomfort. Steps to Take: Self-Care Rest as needed. Healthy habits may help you feel better. Steps include: Choose healthy foods including fruits and vegetables. Drink water throughout the day. Get plenty of sleep each night. If you smoke, try to quit. It may ease breathing. Avoid alcohol. Keep Others Healthy The virus can spread to others. Droplets are released every time you sneeze or cough. The droplets can get into the mouth, nose, or eyes of people near you and lead to infection. To lower the chances of spreading COVID-19 to others: Stay at home until your doctor has said it is safe to leave. If you tested positive this will mean staying isolated until both of the following are true: At least 7 days have passed since the start of illness. You are free of fever for at least 72 hours without the use of medicine. During this time: - Avoid public areas, events, or transportation. Do not return to work or school until your doctor has said it is safe to do so. - Call ahead if you need to go to a medical center. Let them know you may have COVID-19. It will help them guide you where to go. They may also ask you to wear a facemask when you come to the office. - If you call for emergency medical services, let them know you may have COVID- 19. While at home: - Try to avoid close contact with others. Stay about 6 feet away. - If possible, spend most of your time in a separate room from others. - Use a face mask if you will be in close contact with others such as sharing a room or vehicle. - Have someone wipe down common surfaces in the home. Use household bleach boiler packer every day on areas like doorknobs, counters, or sinks. - Cough or sneeze into a tissue. Throw the tissue away right after use. If a tissue is not available, cough or sneeze into your elbow. - Wash your hands often. Wash them after sneezing or coughing. Use soap and mikhail er and wash for at least 20 seconds. Alcohol based hand lining cleaner can be used if soap and water is not available. - Do not prepare food for others. Avoid sharing personal items like forks, spoons, or toothbrushes. - Avoid close contact with pets while you are sick. There is no evidence of the virus passing to pets. This is a safety step until more is known about this virus. Isolation can be frustrating. Social interaction can help. Keep in touch with friends and family through phone and tech options. You can still interact with others in your home, just keep a safe distance of about 6 feet. Follow-up: Your doctors office will check in with you to see if there are any changes in your health. You may be asked to keep track of symptoms to share with them. They will also let you know when you are clear to be in public again. Problems to Look Out For: Contact your doctor if your recovery is not going as you expect. Get emergency care if you have problems such as: - Trouble breathing - Nonstop chest pain or pressure - Changes in awareness, confusion, or problems waking - Lips or face have bluish color - Worsening of symptoms If you think you have an emergency, call for emergency medical services right away. As taken from [facility] Benzonatate (TESSALON PERLE) 100 Mg Capsule 100 MG PO TID PRN for COUGH for 4 Days, #12 CAP Prov: EMMA JAUREGUI DO 03/21/20 Albuterol Sulfate (Proair Hfa) 8.5 Gm Hfa.aer.ad 2 PUFF IH PRN Q4-6HRS PRN for wheezing for 21 Days, #1 INHALER 0 Refills Prov: EMMA JAUREGUI DO 03/21/20 EMMA JAUREGUI DO Mar 21, 2020 18:59
--- NOTE | 2020-03-21 19:27 | RAD ---
Exam: Chest one view INDICATION: Chest pain TECHNIQUE: Frontal view of the chest Comparisons: None FINDINGS: The cardiomediastinal silhouette and pulmonary vessels are within normal limits. The lung and pleural spaces are clear. IMPRESSION: No acute cardiopulmonary process. Electronically signed by: Reinaldo Nur MD (03/21/2020 7:25 PM) JULIANA
--- NOTE | 2020-03-23 12:09 | NUR ---
IP: Attempted to call COVID results. No answer. No means to leave a voicemail.
--- NOTE | 2020-03-23 14:13 | EKG ---
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
--- NOTE | 2020-03-24 08:40 | NUR ---
IP: Attempted a second time to call the COVID results. No answer. No means to leave a voicemail.
== END 2020-03-21 19:57 | disposition home or self-care (01) ==
LOC: ER 16:50
DX: R07.1 Chest pain on breathing (principal); J06.9 Acute upper respiratory infection, unspecified; F17.200 Nicotine dependence, unspecified, uncomplicated; Z88.0 Allergy status to penicillin; Z88.1 Allergy status to other antibiotic agents
CPT/HCPCS: 36415; 71045; 80053; 81001; 81025; 83690; 83735; 84484; 85025; 85379; 87086; 93005; 99285; C9803; U0003

== ENCOUNTER 2020-05-06 13:29 | Emergency (ER) | payer OTHER ==
[~2020-05-06] VITALS: Ht 157.5 cm; Wt 50.0 kg
[~2020-05-06 13:29] MED LIST changes: +ALBU2.5V8 IH; +BENZ100C PO
[2020-05-06 13:30] VITALS: BP 122/76
[2020-05-06] MEDS ORDERED: LIDOCAINE 1% PF 2 ML VIAL. INJ ONE (13:45)
--- NOTE | 2020-05-06 13:51 | PHYS DOC ---
Past Medical History Past Medical History: No Pertinent History Past Surgical History: No Surgical History Smoking Status: Current Every Day Smoker Alcohol Use: Sober Drug Use: Marijuana General Adult EDM: Chief Complaint: LACERATION/AVULSION HPI: HPI: Patient is a 29 year old female patient presents with laceration to web of left thumb. Patient reports she been opening up a box from a [employer] present prior to coming, when the knife she was using slipped and cut her thumb. States she is able to move her thumb with no discomfort. Reports her last tetanus shot was 4 years ago. Denies additional complaints or concerns today Review of Systems: Review of Systems: Constitutional: Denies fever or chills. [] Musculoskeletal: Denies back pain or joint pain. [] Integument: Denies rash. [] Reports laceration Neurologic: Denies headache, focal weakness or sensory changes. [] Lymphatic: Denies swollen glands. [] Psychiatric: Denies depression or anxiety. [] Heart Score: Risk Factors: Risk Factors: DM, Current or recent (<one month) smoker, HTN, HLP, family history of CAD, obesity. Risk Scores: Score 0 - 3: 2.5% MACE over next 6 weeks - Discharge Home Score 4 - 6: 20.3% MACE over next 6 weeks - Admit for Clinical Observation Score 7 - 10: 72.7% MACE over next 6 weeks - Early Invasive Strategies Allergies: Allergies: Allergies Coded Allergies Type Severity Reaction Last Updated Verified Penicillins Allergy Intermediate vaginal swelling 05/28/19 Yes amoxicillin Allergy Intermediate vaginal swelling 05/28/19 Yes Physical Exam: PE: Constitutional: Well developed, well nourished, no acute distress, non-toxic ap pearance. [] Skin: Warm, dry, no erythema, no rash. [] 1 cm lac to web of left thumb. No tendon involvement noted. Patient able to fully flex, extend, rotate thumb without discomfort. Minimal to no active opening noted at this time. Laceration gapes when thumb is extended. Extremities: No tenderness, no cyanosis, no clubbing, ROM intact, no edema. Full range of motion to hand, able to grasp, flex, extend all digits. [] Neurologic: Alert and oriented X 3, normal motor function, normal sensory function, no focal deficits noted. [] Psychologic: Affect normal, judgement normal, mood normal. [] EKG: EKG: [] Radiology/Procedures: Radiology/Procedures: [] Course & Med Decision Making: Course & Med Decision Making Pertinent Labs and Imaging studies reviewed. (See chart for details) []Simple laceration with closure. Dragon Disclaimer: Dragon Disclaimer: This electronic medical record was generated, in whole or in part, using a voice recognition dictation system. Laceration Repair Lac Repair Indication: [] Laceration Procedure: The patient was placed in the appropriate position and anesthesia around the laceration using 2 mL of 1% lidocaine without epinephrine. The area was cleansed with saline. The laceration was closed with two 5-0 nylon simple interrupted sutures. No additional lacerations were noted the wound area was then dressed with gauze. Total repaired wound length: [1 cm]. Other Items: [None] The patient tolerated the procedure [well]. Complications: No complications]. Departure Departure Impression: Primary Impression: Laceration of left hand without complication, including fingers Qualified Codes: S61.412A - Laceration without foreign body of left hand, initial encounter; S61.219A - Laceration without foreign body of unspecified finger without damage to nail, initial encounter Disposition: 01 DC HOME SELF CARE/HOMELESS Condition: STABLE Referrals: NO PCP (PCP) Patient Instructions: Laceration Care, Adult Additional Instructions: As we discussed keep your hand clean and dry for the next 24 hours. After that, you can wash it as normal. You should avoid scrubbing over the stiches to prevent them from coming out. The stitches should be removed in 7 days, this can be done here or at your primary care provider. BELLA GRAY APRN May 06, 2020 13:51
== END 2020-05-06 15:00 | disposition home or self-care (01) ==
LOC: ER 13:29
DX: S61.412A Laceration without foreign body of left hand, initial encounter (principal); F17.200 Nicotine dependence, unspecified, uncomplicated; Z88.0 Allergy status to penicillin; Z88.1 Allergy status to other antibiotic agents; W26.0XXA Contact with knife, initial encounter; Y93.89 Activity, other specified; Y92.89 Other specified places as the place of occurrence of the external cause; Y99.8 Other external cause status
CPT/HCPCS: 12001; 99282; J3490

== ENCOUNTER 2020-09-28 14:05 | Emergency (ER) | payer OTHER ==
[~2020-09-28] VITALS: Ht 157.5 cm; Wt 49.0 kg
[2020-09-28] MEDS ORDERED: ONDANSETRON PF 4 MG/2 ML VIAL. IVP ONE (14:30)
[2020-09-28] MEDS ORDERED: IV NORMAL SALINE 1000ML BAG 1,000 ML IV SCH (14:30)
--- NOTE | 2020-09-28 14:30 | PHYS DOC ---
Past Medical History Past Medical History: No Pertinent History Past Surgical History: No Surgical History Smoking Status: Current Every Day Smoker Alcohol Use: None Drug Use: Marijuana General Adult EDM: Chief Complaint: CHEST WALL PAIN HPI: HPI: Patient is a 29 year old female who presents with 2 weeks of nonproductive cough, sharp chest pain and chest tightness, lack of appetite, bruising, fatigue. She states her brother has leukemia. Patient is a smoker she is on control. Patient denies dizziness, headache, congestion, fever, body aches, night sweats, abdominal pain, nausea, vomiting, diarrhea, numbness or tingling, focal weakness, syncope, vision changes. Review of Systems: Review of Systems: Constitutional: Denies fever or chills. [] Eyes: Denies change in visual acuity. [] HENT: Denies nasal congestion or sore throat. [] Respiratory: + cough or denies shortness of breath. [] Cardiovascular: + chest pain with chest tightness or denies edema. [] GI: Denies abdominal pain, nausea, vomiting, bloody stools or diarrhea. + Lack of appetite [] : Denies dysuria. [] Musculoskeletal: Denies back pain or joint pain.+ Generalized fatigue [] Integument: Denies rash. + Bruising [] Neurologic: Denies headache, focal weakness or sensory changes. [] Endocrine: Denies polyuria or polydipsia. [] Lymphatic: Denies swollen glands. [] Psychiatric: Denies depression or anxiety. [] Heart Score: C/O Chest Pain: Yes HEART Score for Chest Pain: HEART Score for Chest Pain Response (Comments) Value History Slighlty/Non-Suspicious 0 ECG Normal 0 Age < 45 0 Risk Factors 1 or 2 Risk Factors 1 Troponin < Normal Limit 0 Total 1 Risk Factors: Risk Factors: DM, Current or recent (<one month) smoker, HTN, HLP, family history of CAD, obesity. Risk Scores: Score 0 - 3: 2.5% MACE over next 6 weeks - Discharge Home Score 4 - 6: 20.3% MACE over next 6 weeks - Admit for Clinical Observation Score 7 - 10: 72.7% MACE over next 6 weeks - Early Invasive Strategies Current Medications: Current Medications Medications (Trade) Dose Ordered Sig/Kali Start Time Stop Time Status Last Admin Dose Admin Ondansetron HCl (Zofran) 4 mg 1X ONCE 5/23/21 14:30 09/28/20 14:31 Sodium Chloride 1,000 ml @ 1,000 mls/hr Q1H 09/28/20 14:30 09/28/20 15:29 Allergies: Allergies: Allergies Coded Allergies Type Severity Reaction Last Updated Verified Penicillins Allergy Intermediate vaginal swelling 05/28/19 Yes amoxicillin Allergy Intermediate vaginal swelling 05/28/19 Yes Physical Exam: PE: Constitutional: Well developed, well nourished, no acute distress, non-toxic appearance. [] HENT: Normocephalic, atraumatic, bilateral external ears normal, oropharynx moist, no oral exudates, nose normal. [] Eyes: PERRLA, EOMI, conjunctiva normal, no discharge. [] Neck: Normal range of motion, no tenderness, supple, no stridor. [] Cardiovascular:Heart rate regular rhythm, no murmur [] Lungs & Thorax: Bilateral breath sounds clear to auscultation [] Abdomen: Bowel sounds normal, soft, no tenderness, no masses, no pulsatile masses. [] Skin: Warm, dry, no erythema, no rash. Bruising of different stages to the patient's legs [] Back: No tenderness, no CVA tenderness. [] Extremities: No tenderness, no cyanosis, no clubbing, ROM intact, no edema. [] Neurologic: Alert and oriented X 3, normal motor function, normal sensory function, no focal deficits noted. [] Psychologic: Affect normal, judgement normal, mood normal. [] Current Patient Data: Vital Signs: Vital Signs Date Time Temp Pulse Resp B/P (MAP) Pulse Ox O2 Delivery O2 Flow Rate FiO2 09/28/20 14:12 98.0 79 12 121/83 (96) 100 Room Air 98.0 EKG: EK and read by Dr. Adkins as sinus rhythm and no STEMI Radiology/Procedures: Radiology/Procedures: [] Impression: [facility] [address] [place] [address] IMAGING REPORT Signed PATIENT: ARDHA GERBER ACCOUNT: [id number] : 1990 LOCATION: ER AGE: 29 SEX: F EXAM STATUS: REG ER ORD. PHYSICIAN: LONG FERRER APRN REASON: SOA, CHEST PAIN PROCEDURE: CT ANGIOGRAPHY CHEST Exam: CT of chest with contrast INDICATION: Short of air, chest pain TECHNIQUE: Sequential axial images through the chest obtained following the administration of 75 mL of Isovue-370 IV contrast. Sagittal and coronal reformatted images were reconstructed from the axial data and reviewed. 3-D reformatted images were reconstructed from the axial data and reviewed. Exposure: One or more of the following in the visualized dose reduction techniques were utilized for this examination: 1. Automated exposure control 2. Adjustment of the MA and/or KV according to patient size 3. Use of iterative of reconstructive technique Comparisons: Chest x-ray same day FINDINGS: Visualized portions of the thyroid are unremarkable. No enlarged mediastinal lymph nodes are identified. Heart size is normal. No pericardial effusion. Thoracic aorta has a normal course and caliber. Pulmonary artery is not enlarged. No pulmonary embolus identified within the main, lobar or segmental pulmonary arteries. Airways are patent. No consolidation or pneumothorax. No suspicious lung nodules. No pleural effusion or thickening. Visualized upper abdomen is unremarkable. No suspicious osseous lesions or acute fractures. IMPRESSION: No pulmonary embolus identified within the main, lobar or segmental pulmonary arteries. Electronically signed by: Reinaldo Donnelly MD (09/28/2020 4:04 PM) [facility] DICTATED and SIGNED BY: REINALDO DONNELLY MD DATE: 09/28/20 [id number] [facility] [address] [place] [address] IMAGING REPORT Signed PATIENT: RADHA GERBER ACCOUNT: [id number] : 1990 LOCATION: ER AGE: 29 SEX: F EXAM STATUS: REG ER ORD. PHYSICIAN: LONG FERRER APRN REASON: chest pain, cough PROCEDURE: PORTABLE CHEST 1V XR CHEST 1V Clinical Indication: Reason: chest pain, cough / Spl. Instructions: / History: Comparison: AP chest March 21, 2020. Findings: The cardiomediastinal silhouette is normal. Lungs are clear. There is no pneumothorax. No pleural effusion is appreciated. No acute bone abnormality. IMPRESSION: No acute cardiopulmonary process. Electronically signed by: Edmond Colon MD (09/28/2020 3:44 PM) [id number] DICTATED and SIGNED BY: EDMOND COLON MD DATE: 09/28/20 [id number] Course & Med Decision Making: Course & Med Decision Making Pertinent Labs and Imaging studies reviewed. (See chart for details) COVID-19 CRITERIA: The patient was evaluated during the global COVID-19 pandemic, and that diagnosis was suspected/considered upon their initial presentation. Their evaluation, treatment and testing was consistent with current guidelines for patients who present with complaints or symptoms that may be related to COVID-19. See HPI. Alert and oriented x4. Ambulatory with a steady gait. Skin pink warm and dry. Bruising of different stages all over legs. Lungs are clear to auscultation all lobes. Abdomen is soft and nontender. No CVA tenderness. Denies any urinary symptoms. She is afebrile. Vital signs are within normal limits. Blood work unremarkable. CTA chest and chest x-ray show no acute findings. Patient will be tested for Covid this because of her fatigue and not feeling well. Patient received IV fluid in the ED. She is stable can follow-up with a primary care provider. [] Tati Disclaimer: Tati Disclaimer: This electronic medical record was generated, in whole or in part, using a voice recognition dictation system. Departure Departure Impression: Primary Impression: Nonspecific chest pain Additional Impressions: Cough Bruising Lack of appetite Person under investigation for COVID-19 Disposition: HOME / SELF CARE / HOMELESS Condition: STABLE Referrals: NO PCP (PCP) Patient Instructions: Chest Pain (Nonspecific), Cough, Adult Additional Instructions: Follow-up with your primary care provider soon as possible. Drink plenty of fluids. Rest. If anything worsens you can always come back. Scripts Albuterol Sulfate (PROAIR HFA INHALER) 8.5 Gm Hfa.aer.ad 1 PUFF INH PRN Q6HRS PRN for SHORTNESS OF BREATH, #1 EACH 0 Refills Prov: LONG FERRER [employer] INSTRUCTOR 09/28/20 Methylprednisolone (MEDROL) 4 Mg Tab.ds.pk 1 PKG PO UD, #1 PKG Prov: LONG FERRER [employer] INSTRUCTOR 09/28/20 LONG FERRER [employer] INSTRUCTOR September 28, 2020 14:30
[2020-09-28 14:34] LABS: BASO % 0 % (0-3); EOS % 0 % (0-3); HEMATOCRIT 39.1 % (36.0-47.0); HEMOGLOBIN 13.3 g/dL (12.0-15.5); LYMPH # 1.8 x10^3/uL (1.0-4.8); LYMPH % 27 % (24-48); MEAN CORPUSCULAR HEMOGLOBIN 31 pg (25-35); MEAN CORPUSCULAR HGB CONC 34 g/dL (31-37); MEAN CORPUSCULAR VOLUME 91 fL (79-100); MONO # 0.4 x10^3/uL (0.0-1.1); MONO % 6 % (0-9); NEUT # 4.6 x10^3/uL (1.8-7.7); NEUT % 67 % (31-73); PLATELET COUNT 200 x10^3/uL (140-400); RED BLOOD COUNT 4.29 x10^6/uL (3.50-5.40); RED CELL DISTRIBUTION WIDTH 13.1 % (11.5-14.5); WHITE BLOOD COUNT 6.9 x10^3/uL (4.0-11.0)
[2020-09-28 14:45] LABS: D-DIMER 0.52 ug/mlFEU (0.00-0.50)
[2020-09-28 14:47] LABS: CALCIUM 8.8 mg/dL (8.5-10.1); CREATININE 0.8 mg/dL (0.6-1.0); GFR 84.8; POTASSIUM 3.6 mmol/L (3.5-5.1)
[2020-09-28 14:52] LABS: ALBUMIN 4.5 g/dL (3.4-5.0); ALBUMIN/GLOBULIN RATIO 1.6 (1.0-1.7); TOTAL BILIRUBIN 0.4 mg/dL (0.2-1.0); TOTAL PROTEIN 7.3 g/dL (6.4-8.2)
[2020-09-28 15:07] LABS: BILIRUBIN,URINE NEGATIVE (NEG); CLARITY,URINE CLEAR; COLOR,URINE YELLOW; NITRITE,URINE NEGATIVE (NEG); PH,URINE 6.5 (<5.0-8.0); PROTEIN,URINE NEGATIVE (NEG-TRACE); UROBILINOGEN,URINE 0.2 mg/dL (0.2 mg/dL)
[2020-09-28 15:14] LABS: BARBITURATES NEG (NEG); BENZODIAZEPINES NEG (NEG); CANNABINOIDS POS (NEG); COCAINE NEG (NEG); METHADONE NEG (NEG); OPIATES NEG (NEG); PHENCYCLIDINE NEG (NEG)
[2020-09-28 15:15] LABS: RBC,URINE OCC /HPF (0-2); WBC,URINE 0 /HPF (0-4)
[2020-09-28 15:16] LABS: BACTERIA,URINE 0 /HPF (0-FEW)
[2020-09-28 15:20] LABS: AMPHETAMINE/METHAMPHETAMINE NEG (NEG)
[2020-09-28] MEDS ORDERED: IOHEXOL 350 MG/ML 100 ML VIAL. IV ONE (15:30)
[2020-09-28] MEDS ORDERED: CONTRAST GIVEN. MC PRN (15:30)
--- NOTE | 2020-09-28 15:47 | RAD ---
XR CHEST 1V Clinical Indication: Reason: chest pain, cough / Spl. Instructions: / History: Comparison: AP chest March 21, 2020. Findings: The cardiomediastinal silhouette is normal. Lungs are clear. There is no pneumothorax. No pleural eff usion is appreciated. No acute bone abnormality. IMPRESSION: No acute cardiopulmonary process. Electronically signed by: Edmond Colon MD (09/28/2020 3:44 PM) [id number]
--- NOTE | 2020-09-28 16:06 | RAD ---
Exam: CT of chest with contrast INDICATION: Short of air, chest pain TECHNIQUE: Sequential axial images through the chest obtained following the administration of 75 mL o f Isovue-370 IV contrast. Sagittal and coronal reformatted images were reconstructed from the axial d raheem and reviewed. 3-D reformatted images were reconstructed from the axial data and reviewed. Exposure: One or more of the following in the visualized dose reduction techniques were utilized for this examination: 1. Automated exposure control 2. Adjustment of the MA and/or KV according to patient size 3. Use of iterative of reconstructive technique Comparisons: Chest x-ray same day FINDINGS: Visualized portions of the thyroid are unremarkable. No enlarged mediastinal lymph nodes are identifi ed. Heart size is normal. No pericardial effusion. Thoracic aorta has a normal course and caliber. Pulmon janell artery is not enlarged. No pulmonary embolus identified within the main, lobar or segmental pulmo nary arteries. Airways are patent. No consolidation or pneumothorax. No suspicious lung nodules. No pleural effusion or thickening. Visualized upper abdomen is unremarkable. No suspicious osseous lesions or acute fractures. IMPRESSION: No pulmonary embolus identified within the main, lobar or segmental pulmonary arteries. Electronically signed by: Reinaldo Nur MD (09/28/2020 4:04 PM) [facility]
[2020-09-28] MEDS ORDERED: METH4TAB2 PO (16:41)
[2020-09-28] MEDS ORDERED: ALBU2.5V8 INH (16:41)
[2020-09-28 16:42] VITALS: BP 111/70
--- NOTE | 2020-09-28 19:39 | EKG ---
[facility] [address] [place] [address] Test Date: 2020-09-28 Test Time: 14:35:36 Pat Name: RADHA GERBER Department: Room: Gender: F Esc[employer] Clerk: : 1990 Requested By: LONG FERRER Order Number: [id number] Reading MD: Measurements Intervals [place] Rate: 79 P: 57 CT: 172 QRS: 90 QRSD: 86 T: 39 QT: 342 QTc: 393 Interpretive Statements SINUS RHYTHM NO SPECIFIC ECG ABNORMALITIES RI6.01 No previous ECG available for comparison
== END 2020-09-28 17:28 | disposition home or self-care (01) ==
LOC: ER 14:05
DX: S80.12XA Contusion of left lower leg, initial encounter (principal); S80.11XA Contusion of right lower leg, initial encounter; R07.89 Other chest pain; R63.0 Anorexia; R05 Cough; R53.83 Other fatigue; Z20.822 Contact with and (suspected) exposure to COVID-19; X58.XXXA Exposure to other specified factors, initial encounter; Y93.89 Activity, other specified; Y92.89 Other specified places as the place of occurrence of the external cause; Y99.8 Other external cause status
CPT/HCPCS: 36415; 71045; 71275; 80053; 80307; 81001; 81025; 83690; 83735; 83880; 84484; 85025; 85379; 85610; 93005; 96361; 96374; 99285; J2405; J7030; Q9967

== ENCOUNTER 2020-11-15 16:37 | Emergency (ER) | payer OTHER ==
[~2020-11-15] VITALS: Ht 157.5 cm; Wt 46.8 kg
[~2020-11-15 16:37] MED LIST changes: +ALBU2.5V8 INH; +METH4TAB2 PO
[2020-11-15 18:11] VITALS: BP 125/69
--- NOTE | 2020-11-15 18:40 | ED.ADGEN ---
Past Medical History Past Medical History: No Pertinent History Past Surgical History: No Surgical History Smoking Status: Current Every Day Smoker Alcohol Use: None Drug Use: Marijuana General Adult EDM: Chief Complaint: SORE THROAT HPI: HPI: Patient is a 29 year old female coming in for sore throat, congestion, nonproductive cough since this morning. Her daughter has had similar symptoms since yesterday. Denies any fevers or GI complaints. Has not had her Covid vaccines. No other medical history Review of Systems: Review of Systems: All other systems within normal limits except for as noted in the HPI Current Medications: Current Medications Medications (Trade) Dose Ordered Sig/Kali Start Time Stop Time Status Last Admin Dose Admin Dexamethasone (Decadron) 10 mg 1X ONCE 11/15/20 19:30 11/15/20 19:31 Allergies: Allergies: Allergies Coded Allergies Type Severity Reaction Last Updated Verified Penicillins Allergy Intermediate vaginal swelling 05/28/19 Yes amoxicillin Allergy Intermediate vaginal swelling 05/28/19 Yes Physical Exam: PE: Constitutional: Well developed, well nourished, no acute distress, non-toxic appearance. [] HENT: Normocephalic, atraumatic, bilateral external ears normal, nose normal. Erythema posterior pharynx without exudate. [] Eyes: PERRLA, conjunctiva normal, no discharge. [] Neck: No rigidity, supple, no stridor. [] Cardiovascular: Regular rate and rhythm, brisk cap refill [] Lungs & Thorax: Non labored symmetric respirations, no tachypnea or respiratory distress [] Abdomen: Soft, nondistended. Skin: Warm, dry, no erythema, no rash. [] Back: Unremarkable Extremities: No deformities, range of motion grossly intact, no lower extremity edema [] Neurologic: Alert and oriented X 3, no focal deficits noted. [] Psychologic: Affect normal, judgement normal, mood normal. [] Current Patient Data: Labs: Rapid strep negative Vital Signs: Vital Signs Date Time Temp Pulse Resp B/P (MAP) Pulse Ox O2 Delivery O2 Flow Rate FiO2 11/15/20 18:11 98.2 85 18 125/69 (84) 100 Room Air 98.2 EKG: EKG: [] Heart Score: C/O Chest Pain: No Risk Factors: Risk Factors: DM, Current or recent (<one month) smoker, HTN, HLP, family history of CAD, obesity. Risk Scores: Score 0 - 3: 2.5% MACE over next 6 weeks - Discharge Home Score 4 - 6: 20.3% MACE over next 6 weeks - Admit for Clinical Observation Score 7 - 10: 72.7% MACE over next 6 weeks - Early Invasive Strategies Radiology/Procedures: Radiology/Procedures: [] Course & Med Decision Making: Course & Med Decision Making Pertinent Labs and Imaging studies reviewed. (See chart for details) [] Dragon Disclaimer: Dragon Disclaimer: This electronic medical record was generated, in whole or in part, using a voice recognition dictation system. Departure Departure Impression: Primary Impression: Person under investigation for COVID-19 Disposition: HOME / SELF CARE / HOMELESS Condition: STABLE Referrals: UNKNOWN PCP NAME (PCP) Additional Instructions: You have been tested for or diagnosed with COVID-19. It is an infection caused by a new type of coronavirus. COVID-19 will cause cold-like or mild flu symptoms in most. It can cause more severe symptoms like problems breathing in some. There is no treatment for COVID-19. The body will clear the infection over time. Self-care will help to ease discomfort. Steps to Take: Self-Care Rest as needed. Healthy habits may help you feel better. Steps include: Choose healthy foods including fruits and vegetables. Drink water throughout the day. Get plenty of sleep each night. If you smoke, try to quit. It may ease breathing. Avoid alcohol. Keep Others Healthy The virus can spread to others. Droplets are released every time you sneeze or cough. The droplets can get into the mouth, nose, or eyes of people near you and lead to infection. To lower the chances of spreading COVID-19 to others: Stay at home until your doctor has said it is safe to leave. If you tested positive this will mean staying isolated until both of the following are true: At least 7 days have passed since the start of illness. You are free of fever for at least 72 hours without the use of medicine. During this time: - Avoid public areas, events, or transportation. Do not return to work or school until your doctor has said it is safe to do so. - Call ahead if you need to go to a medical center. Let them know you may have COVID-19. It will help them guide you where to go. They may also ask you to wear a facemask when you come to the office. - If you call for emergency medical services, let them know you may have COVID- 19. While at home: - Try to avoid close contact with others. Stay about 6 feet away. - If possible, spend most of your time in a separate room from others. - Use a face mask if you will be in close contact with others such as sharing a room or vehicle. - Have someone wipe down common surfaces in the home. Use household medical dosimetrist every day on areas like doorknobs, counters, or sinks. - Cough or sneeze into a tissue. Throw the tissue away right after use. If a tissue is not available, cough or sneeze into your elbow. - Wash your hands often. Wash them after sneezing or coughing. Use soap and water and wash for at least 20 seconds. Alcohol based hand drain cleaner can be used if soap and water is not available. - Do not prepare food for others. Avoid sharing personal items like forks, spoons, or toothbrushes. - Avoid close contact with pets while you are sick. There is no evidence of the virus passing to pets. This is a safety step until more is known about this virus. Isolation can be frustrating. Social interaction can help. Keep in touch with friends and family through phone and tech options. You can still interact with others in your home, just keep a safe distance of about 6 feet. Follow-up: Your doctors office will check in with you to see if there are any changes in your health. You may be asked to keep track of symptoms to share with them. They will also let you know when you are clear to be in public again. Problems to Look Out For: Contact your doctor if your recovery is not going as you expect. Get emergency care if you have problems such as: - Trouble breathing - Nonstop chest pain or pressure - Changes in awareness, confusion, or problems waking - Lips or face have bluish color - Worsening of symptoms If you think you have an emergency, call for emergency medical services right away. As taken from [facility] GUEVARA TIM MD Nov 15, 2020 18:40
[2020-11-15] MEDS ORDERED: DEXAMETHASONE 4 MG TABLET PO ONE (19:30)
--- NOTE | 2020-11-17 09:07 | NUR ---
IP: Attempted to contact pt concerning COIVD results. No answer, no voicemail.
--- NOTE | 2020-11-17 09:37 | NUR ---
IP: Informed pt of negative covid test. Pt verbalized understanding.
== END 2020-11-15 19:25 | disposition left against medical advice (07) ==
LOC: ER 16:37
DX: J02.9 Acute pharyngitis, unspecified (principal); Z20.822 Contact with and (suspected) exposure to COVID-19; R05 Cough; R09.81 Nasal congestion; F17.200 Nicotine dependence, unspecified, uncomplicated; Z88.0 Allergy status to penicillin; Z88.1 Allergy status to other antibiotic agents
CPT/HCPCS: 87070; 87880; 99283; U0003; U0005

== ENCOUNTER 2020-12-04 15:47 | Emergency (ER) | payer OTHER | END 2020-12-04 16:10 | disposition left against medical advice (07) | LOC: ER 15:47 | DX: R10.9 Unspecified abdominal pain (principal); Z53.21 Procedure and treatment not carried out due to patient leaving prior to being seen by health care provider ==

== ENCOUNTER 2021-09-29 15:32 | Emergency (ER) | payer OTHER ==
[~2021-09-29] VITALS: Ht 157.5 cm; Wt 52.9 kg
[2021-09-29 15:57] VITALS: BP 98/63
--- NOTE | 2021-09-29 16:21 | PHYS DOC ---
Past Medical History Past Medical History: No Pertinent History Past Surgical History: No Surgical History, Other Additional Past Surgical Histo: DENTAL Smoking Status: Current Every Day Smoker Alcohol Use: None Drug Use: Marijuana General Adult EDM: Chief Complaint: BACK PAIN - NO INJURY HPI: HPI: Patient is a 30 year old female with no significant medical history 5 para 4 currently 9 weeks presenting today complaining of nausea, vomiting, diarrhea and low back pain, symptoms began yesterday. Patient denies any abdominal pain. Denies any hematemesis or melena. Reports following up with her CLERICAL ASSISTANT for OB care. Review of Systems: Review of Systems: Constitutional: Denies fever or chills. [] Eyes: Denies change in visual acuity. [] HENT: Denies nasal congestion or sore throat. [] Respiratory: Denies cough or shortness of breath. [] Cardiovascular: Denies chest pain or edema. [] GI: Reports nausea, vomiting, diarrhea denies abdominal pain, bloody stools : Denies dysuria. [] Musculoskeletal: Reports low back pain Integument: Denies rash. [] Neurologic: Denies headache, focal weakness or sensory changes. Psychiatric: Denies depression or anxiety. [] Heart Score: C/O Chest Pain: N/A Risk Factors: Risk Factors: DM, Current or recent (<one month) smoker, HTN, HLP, family history of CAD, obesity. Risk Scores: Score 0 - 3: 2.5% MACE over next 6 weeks - Discharge Home Score 4 - 6: 20.3% MACE over next 6 weeks - Admit for Clinical Observation Score 7 - 10: 72.7% MACE over next 6 weeks - Early Invasive Strategies Allergies: Allergies: Allergies Coded Allergies Type Severity Reaction Last Updated Verified Penicillins Allergy Intermediate vaginal swelling 20 Yes amoxicillin Allergy Intermediate vaginal swelling 20 Yes Physical Exam: PE: Constitutional: Well developed, well nourished, no acute distress, non-toxic appearance. [] HENT: Normocephalic, atraumatic, bilateral external ears normal, oropharynx m oist, no oral exudates, nose normal. [] Eyes: PERRLA, EOMI, conjunctiva normal, no discharge. [] Neck: Normal range of motion, no tenderness, supple, no stridor. [] Cardiovascular:Heart rate regular rhythm, no murmur [] Lungs & Thorax: Bilateral breath sounds clear to auscultation [] Abdomen: Bowel sounds normal, soft, no tenderness, no masses, no pulsatile masses. [] Skin: Warm, dry, no erythema, no rash. [] Back: No tenderness, no CVA tenderness. [] Extremities: No tenderness, no cyanosis, no clubbing, ROM intact, no edema. [] Neurologic: Alert and oriented X 3, normal motor function, normal sensory function, no focal deficits noted. [] Psychologic: Affect normal, judgement normal, mood normal. [] Current Patient Data: Labs: Laboratory Tests Test 09/29/21 16:16 POC Urine HCG, Qualitative Hcg positive (Negative) Vital Signs: Vital Signs Date Time Temp Pulse Resp B/P (MAP) Pulse Ox O2 Delivery O2 Flow Rate FiO2 09/29/21 15:57 98.8 91 18 98/63 (75) 98 Room Air 98.8 EKG: EKG: [] Radiology/Procedures: Radiology/Procedures: [] Course & Med Decision Making: Course & Med Decision Making Pertinent Labs and Imaging studies reviewed. (See chart for details) This is a 30-year-old female patient 5 para 4 currently 9 weeks presenting today with nausea, vomiting, diarrhea, low back pain, symptoms since yesterday. CBC with no acute findings, CMP with potassium of 3.3. Diet rich in potassium recommended. UA negative for infection. Patient was given IV fluids, Zofran, feeling better. Discharge to home. Follow-up with OB in the course of this week Tati Disclaimer: Tati Disclaimer: This electronic medical record was generated, in whole or in part, using a voice recognition dictation system. Departure Departure Impression: Primary Impression: Nausea vomiting and diarrhea Additional Impression: Back pain Qualified Codes: M54.9 - Dorsalgia, unspecified Disposition: 01 HOME / SELF CARE / HOMELESS Condition: STABLE Referrals: UNKNOWN PCP NAME (PCP) follow up with your OBGYN in the course of this week Patient Instructions: Diarrhea, Nausea and Vomiting, [id number] Additional Instructions: You were evaluated in the emergency room for nausea, vomiting, back pain and diarrhea in . Please take the prescribed Zofran as needed for nausea or vomiting. Push fluids. You can take Tylenol for pain. Follow-up with your CLERICAL ASSISTANT in the course of this week Scripts Ondansetron (ONDANSETRON ODT) 4 Mg Tab.rapdis 1 TAB PO PRN Q6-8HRS, #16 TAB Prov: KEMAL GLASS APRN 09/29/21 KEMAL GLASS APRN September 29, 2021 16:21
[2021-09-29] MEDS ORDERED: ONDANSETRON PF 4 MG/2 ML VIAL. IVP ONE (16:30)
[2021-09-29] MEDS ORDERED: IV NORMAL SALINE 1000ML BAG 1,000 ML IV ONE (16:30)
[2021-09-29 16:57] LABS: BACTERIA,URINE FEW /HPF (0-FEW)
[2021-09-29 16:58] LABS: RBC,URINE 0 /HPF (0-2); WBC,URINE OCC /HPF (0-4)
[2021-09-29 17:42] LABS: BASO % 0 % (0-3); EOS % 0 % (0-3); HEMATOCRIT 35.8 % (36.0-47.0); HEMOGLOBIN 12.4 g/dL (12.0-15.5); LYMPH # 0.6 x10^3/uL (1.0-4.8); LYMPH % 6 % (24-48); MEAN CORPUSCULAR HEMOGLOBIN 31 pg (25-35); MEAN CORPUSCULAR HGB CONC 35 g/dL (31-37); MEAN CORPUSCULAR VOLUME 89 fL (79-100); MONO # 0.5 x10^3/uL (0.0-1.1); MONO % 5 % (0-9); NEUT # 9.4 x10^3/uL (1.8-7.7); NEUT % 89 % (31-73); PLATELET COUNT 197 x10^3/uL (140-400); RED BLOOD COUNT 4.04 x10^6/uL (3.50-5.40); RED CELL DISTRIBUTION WIDTH 12.9 % (11.5-14.5); WHITE BLOOD COUNT 10.5 x10^3/uL (4.0-11.0)
[2021-09-29 18:05] LABS: CALCIUM 8.4 mg/dL (8.5-10.1); CREATININE 0.6 mg/dL (0.6-1.0); GFR 117.4; POTASSIUM 3.3 mmol/L (3.5-5.1)
[2021-09-29 18:12] LABS: ALBUMIN 3.5 g/dL (3.4-5.0); ALBUMIN/GLOBULIN RATIO 0.9 (1.0-1.7); TOTAL BILIRUBIN 0.4 mg/dL (0.2-1.0); TOTAL PROTEIN 7.5 g/dL (6.4-8.2)
[2021-09-29 18:49] LABS: INFLUENZA A PATIENT NEGATIVE (NEGATIVE); INFLUENZA B PATIENT NEGATIVE (NEGATIVE)
[2021-09-29] MEDS ORDERED: ONDA4TAB12 PO (19:29)
== END 2021-09-29 19:47 | disposition home or self-care (01) ==
LOC: ER 15:32
DX: O21.9 Vomiting of pregnancy, unspecified (principal); Z20.822 Contact with and (suspected) exposure to COVID-19; R19.7 Diarrhea, unspecified; M54.50 Low back pain, unspecified; O99.331 Smoking (tobacco) complicating pregnancy, first trimester; Z3A.09 9 weeks gestation of pregnancy; Z88.0 Allergy status to penicillin; Z88.1 Allergy status to other antibiotic agents
CPT/HCPCS: 36415; 80053; 81001; 81025; 84702; 85025; 87428; 96361; 96374; 99283; J2405; J7030; 99284-25